=== PATIENT | female | born 1935 | race Caucasian/White ===

== ENCOUNTER → 2016-12-03 | Outpatient (CLI) | payer OTHER ==
[~2016-12-03] MED LIST: ADVAIR HFA 230M12 GM INH; ALENDRONATE SODI5 MG PO; ALPRAZOLAM 0.50.5 M1 PO; ARICEPT 5 MG TAB5 MG PO; ARTIFICIAL TEAR15 M6 OP; ASPIR 8181 MG PO; CALCIUM 600 +1 EAC1 PO; CARAFATE 1 GM TA1 G1 PO; COLACE100 MG PO; HYDROCODONE-AP1 EAC6 PO; HYDROCODONE-APA1 TA1 PO; MELATONIN3 MG PO; NAMENDA 5 MG TAB5 M1 PO; NICOTINE LOZENGE2 MG PO; NUEDEXTA 20-101 EACH PO; OLEPTRO ER150 M1 PO; PROBIOTIC1 EAC1 PO; PROTONIX 20 MG20 M1 PO; SERTRALINE HCL100 MG PO; SERTRALINE HCL50 MG PO; SPIRIVA INH; TRAMADOL 50 MG50 MG PO; TRAZODONE HCL100 MG PO; TYLENOL325 MG PO; VITAMIN B122500 MCG PO; VITAMIN D3400 UNI2 PO; VOLTAREN GEL 1100 G2 TOP; ZANAFLEX4 MG PO; ZANTAC 150MG T150 MG PO
== END ==
LOC: CAT 08:31 → RAD 14:51 → CAT 17:37
DX: R16.0 Hepatomegaly, not elsewhere classified (principal); R19.00 Intra-abdominal and pelvic swelling, mass and lump, unspecified site; N83.209 Unspecified ovarian cyst, unspecified side; K76.9 Liver disease, unspecified; J44.9 Chronic obstructive pulmonary disease, unspecified; R91.8 Other nonspecific abnormal finding of lung field

== ENCOUNTER → 2017-03-14 | Outpatient (CLI) | payer OTHER ==
[~2017-03-14] VITALS: Ht 162.6 cm; Wt 50.8 kg
[~2017-03-14] MED LIST changes: +CONSTULOSE10 GM/15 M PO; +LIPITOR10 MG PO; +PROSCAR 5MG TABL5 MG PO; +XANAX 0.25 MG0.25 MG PO; +ZOLOFT50 MG PO
--- NOTE | ~2017-03-14 | HPC ---
[facility] [place] [address] PAIN MANAGEMENT CONSULTATION Name: CHAVO FRAZIER Room #: REG Jayna Larry#: [id number] Admission: 03/14/17 Attend Phys: Beau Redding DO Discharge: Date of : 36 Report #: [id number] THIS REPORT FOR: //name// CC: Fransisca Redding The patient is an 81-year-old female, prior seen in the pain clinic 01/13/2017, diagnosed with symptomatic lumbar radiculopathy, DJD affecting hands, knee and component of cervical spondylosis. The patient was given a lumbar epidural injection on 12/24/2016. She had returned, last visit, she had at least 65% following the first injection. I had renewed some hydrocodone. We trialed Voltaren gel topically for her neck. We talked about moving forward with either cervical facets or repeat epidural injection depending on clinical exam at that time. She returns to pain clinic today. I am pleased to note that she is doing remarkably well. No problems with functional status, able to participate in all activities of daily living. She thinks the Voltaren gel is helpful. She rates her pain at 2/10 at worse. She does, however, have ongoing knee pain that seems to be the most problematic. She has modestly ballottable edema here with some osseous hypertrophy. She had steroid injections by an orthopedic surgeon in the distant past. PHYSICAL EXAMINATION: Shows vital signs stable. She is afebrile. Knee appears to have intact ligaments including anterior, posterior cruciate as well as medial and lateral collateral ligaments are intact. There is a modest ballottable edema. ASSESSMENT: Degenerative joint disease, right knee in a patient with history of lumbar radiculopathy, cervical spondylosis, doing well on current medications. RECOMMENDATION: We will seek authorization to move forward with steroid injection in that right knee. Today, I did take the [place] of ordering x-rays of the right knee, I reviewed those studies noting mild degenerative changes in the medial apartment of the right knee. By: [id number] [id number] Beau Redding, /nt
[2017-03-14 10:16] VITALS: BP 131/89
== END ==
LOC: PAIN 07:11
DX: M54.16 Radiculopathy, lumbar region (principal); M17.0 Bilateral primary osteoarthritis of knee; M19.042 Primary osteoarthritis, left hand; M19.041 Primary osteoarthritis, right hand; F32.9 Major depressive disorder, single episode, unspecified

== ENCOUNTER → 2017-03-21 | Outpatient (CLI) | payer OTHER ==
[~2017-03-21] VITALS: Ht 162.6 cm; Wt 51.0 kg
--- NOTE | ~2017-03-21 | HPC ---
[facility] Ramya [place] [address] PAIN MANAGEMENT CONSULTATION Name: CHAVO FRAZIER Room #: REG CL Larry#: [id number] Admission: 03/21/17 Attend Phys: Beau Redding DO Discharge: Date of : 36 Report #: [id number] THIS REPORT FOR: //name// CC: Fransisca Redding DATE OF SERVICE: 03/21/2017 HISTORY OF PRESENT ILLNESS: The patient is a pleasant 81-year-old female, prior seen in the pain clinic, 03/14/2017, we diagnosed symptomatic DJD, right knee. I have ordered x-rays of the right knee, accomplished that day, they note mild degenerative changes involving the medial compartment of the right knee, patellofemoral joint. She presents to pain clinic today for a right knee joint injection under fluoroscopy. PROCEDURE NOTE: Right knee injection under fluoroscopy. PROCEDURE: After written informed consent was obtained, the patient was taken to fluoroscopy suite, placed in prone position. After sterile prep and drape, skin wheal was raised. A 21-gauge needle was placed from a superior lateral aspect of the inferior medial trajectory. I had difficult time obtaining good placement. We elected to abort and retry at an inferior lateral aspect approach in a superior medial trajectory. The catheter was easily advanced under the patella, negative aspiration was accomplished. A 20 mg triamcinolone plus 1 mL of 0.5% preservative-free bupivacaine was injected. Needle was removed. The area was cleansed, Band-Aid applied. The patient was told to watch the area for swelling, infection or increased pain. PLAN: Follow up in 4 weeks for reevaluation and repeat injection if indicated. We might try a medial approach at next visit due to the fact that most of the pathology is on the medial aspect of the knee. Discharged in good stable condition. Fluoroscopy time was 10 seconds. <ELECTRONICALLY SIGNED> By: Beau Redding DO 03/23/17 0758 [id number] [id number] Beau Redding DO /nt
[2017-03-21 13:31] VITALS: BP 120/60
== END ==
LOC: PAIN 06:52
DX: M17.11 Unilateral primary osteoarthritis, right knee (principal); K21.9 Gastro-esophageal reflux disease without esophagitis

== ENCOUNTER → 2017-04-18 | Outpatient (CLI) | payer OTHER ==
[~2017-04-18] VITALS: Ht 162.6 cm; Wt 50.8 kg
[~2017-04-18] MED LIST changes: +ACETAMINOPHEN325 M1 PO; +VITAMIN D35000 UNI1 PO
--- NOTE | ~2017-04-18 | HPC ---
[facility] [place] [address] PAIN MANAGEMENT CONSULTATION Name: CHAVO FRAZIER Room #: REG IJEOMA Larry#: [id number] Admission: 04/18/17 Attend Phys: Beau Redding DO Discharge: Date of : 36 Report #: [id number] THIS REPORT FOR: //name// CC: Fransisca Redding The patient is an 81-year-old female, prior seen in the pain clinic 03/21/2017, we did a steroid injection in her knees at that time. Returns to the pain clinic today noting that the knee joint injection afforded incremental relief of her knee pain. Her primary pain remains back, both legs, right greater than left. Rates her pain as 6/10, exacerbated with standing and walking, worse in the evening. PHYSICAL EXAMINATION: Shows an 81-year-old female, BMI is 19.2 kilograms per meter squared. Vital signs are stable as noted in the EMR. Rises from chair using armrest, modestly antalgic gait. Lower extremity strength is diminished symmetrically. Positive straight leg raise bilaterally. ASSESSMENT: Lumbar radiculopathy by clinical exam and history. The patient prior had an epidural injection back in December with incremental relief for radicular pain. After discussion, we would like to repeat the injection under fluoroscopy today. Continue physical activity. Follow up on an as needed basis. ASSESSMENT: Symptomatic lumbar radiculopathy. PROCEDURE: Lumbar epidural injection under fluoroscopy. PROCEDURE NOTE: After both written and informed consent to include risk of spinal cord damage, increased pain, weakness and dural puncture, the patient was taken to the fluoroscopy suite, placed in the prone position. After sterile prep and drape, a skin wheal with lidocaine was raised. A 22-gauge epidural Tuohy needle was inserted in the midline at L4-L5 with good loss to resistance. Negative aspiration for cerebrospinal fluid or blood was noted. Then 1 mL of Omnipaque under biplanar fluoroscopy showed good spread within the epidural space. This was followed with 80 mg of triamcinolone plus 1 mL of 1.5% preservative-free Xylocaine, 0.5 mL Xylocaine was then injected to flush the needle; it was removed. The patient was monitored for an appropriate period of time and discharged in good and stable condition. <ELECTRONICALLY SIGNED> By: Beau Redding DO 04/20/17 1252 1638 22 Beau Redding DO /nt
[2017-04-18 12:59] VITALS: BP 145/50
== END ==
LOC: PAIN 06:44
DX: M54.16 Radiculopathy, lumbar region (principal)

== ENCOUNTER → 2017-05-13 | Outpatient (CLI) | payer OTHER ==
[~2017-05-13] VITALS: Ht 162.6 cm; Wt 51.7 kg
[2017-05-13 10:12] VITALS: BP 119/59
== END ==
LOC: PAIN 06:54
DX: M54.16 Radiculopathy, lumbar region (principal)

== ENCOUNTER → 2017-06-24 | Outpatient (CLI) | payer OTHER ==
[~2017-06-24] VITALS: Ht 162.6 cm; Wt 53.7 kg
--- NOTE | ~2017-06-24 | HPC ---
[facility] [place] [address] [address] PAIN MANAGEMENT CONSULTATION Name: CHAVO FRAZIER Room #: REG Jayna Colvin.#: [id number] Admission: 06/24/17 Attend Phys: Cristiana Duarte MD Discharge: Date of : 36 Report #: [id number] THIS REPORT FOR: //name// CC: MARLEY physician/PCP Cristiana Duarte DATE OF SERVICE: 06/24/2017 CHIEF COMPLAINT: Upper and lower back pain as well as right knee pain. FOLLOWUP HISTORY: The patient is an 81-year-old female who has been seen in the pain clinic because of lumbar radiculopathy. She has undergone epidural steroid injections and gleaned benefits from these. She returns today indicating that her pain has been problematic. She rates it as 5-6. She has been lying in bed for longer periods of time. Her daughter states that she has been in bed for a number of days. She has pain, which she describes in the lower portion of her back as well as pain in her right knee. She has been using a walker to help ambulate. PHYSICAL EXAMINATION: Blood pressure is 117/70, pulse 74, respiratory rate 16, room air saturation is 93, height 5 feet 4 inches, 118 pounds, and BMI is 20. The patient has pain and discomfort, which she describes radiating down into the lumbar area. She walks in a slow antalgic gait with a walker. IMPRESSION: 1. Lumbar radiculopathy. 2. Knee pain. RECOMMENDATIONS: We discussed treatment options with the patient. She has been given tramadol. She has not taken it secondary to the possibility of constipation. She has had some problem with constipation for a significant part of her life. She had used aqua therapy. She found that it was helpful with her pain. She feels that it might be another option which would be helpful. ASSESSMENT: 1. Symptomatic Lumbar radiculopathy. 2. Knee pain involving the right knee. RECOMMENDATIONS: The patient will try tramadol. If she notes problems with constipation. She will try another medication, whether bulk or laxative type of medication. She will also be seen by Physical Therapy. She will be evaluated and provided with activities which would be helpful. She will call us if she has any problems with the tramadol or Physical Therapy. She will return in the future when it will be possible for her to again undergo treatment with an epidural steroid. She and her daughter indicated they understood the treatment regimen. [address] [address] PAIN MANAGEMENT CONSULTATION Name: CHAVO FRAZIER Room #: REG CLI BinDiannLisa#: [id number] Admission: 06/24/17 Attend Phys: Cristiana Duarte MD Discharge: Date of : 36 Report #: [id number] We would like to thank you for letting us participate in her care. We hope she continues to improve. By: 1426 0016 Cristiana Duarte MD /
[2017-06-24 11:34] VITALS: BP 117/70
== END | disposition home or self-care (01) ==
LOC: PAIN 06:56
DX: M54.16 Radiculopathy, lumbar region (principal); M25.561 Pain in right knee

== ENCOUNTER → 2017-07-08 | Outpatient (CLI) | payer OTHER ==
[~2017-07-08] VITALS: Ht 162.6 cm; Wt 55.1 kg
--- NOTE | ~2017-07-08 | HPC ---
[facility] [place] [address] [address] [place] [address] PAIN MANAGEMENT CONSULTATION Name: CHAVO FRAZIER Room #: REG IJEOMA Colvin.#: [id number] Admission: 07/08/17 Attend Phys: Cristiana Duarte MD Discharge: Date of : 36 Report #: [id number] THIS REPORT FOR: //name// CC: Diana Olivera MD DATE OF SERVICE: 07/08/2017 CHIEF COMPLAINT: Pain in the back of the leg that goes down to the right buttocks, also have some neck pain. FOLLOWUP HISTORY: The patient is an 81-year-old female who has been seen in the Pain Clinic in the past because of lumbar radiculopathy. She has undergone epidural steroid injections and gleaned benefits from these. She returns today indicating that her pain is an 8-9. She is experiencing pain radiating down the lower portion of her back into her right buttock as well as has some neck and knee discomfort. Pain is down in the posterior portion of her leg. She has some numbness, weakness and discomfort in this area. She feels that another epidural steroid injection would prove beneficial. She has had no complication from the previous injections. She feels that her medications are helpful. She continues to use a walker to help ambulate. PHYSICAL EXAMINATION: Blood pressure is 123/57, pulse 79, respiratory rate 14, room air saturation 98%. Height 5 feet 4 inches, weight 121 pounds, BMI is 20. The patient has not fallen since we saw her last. She continues to have pain and discomfort, which radiates down into the posterior portion of her back in the L5-S1 distribution. She walks with her walker with a slow and antalgic gait. IMPRESSION: 1. Lumbar radiculopathy, L5-S1 distribution and discomfort at this juncture. 2. Knee pain. RECOMMENDATION: We discussed treatment options with the patient. Risks and benefits of an epidural steroid injection were again reviewed. Possible complications were reiterated. Possible complications which could include but are not limited to infection, increased muscle soreness, headache, bleeding, nerve damage were explained. The patient would like to proceed. ASSESSMENT: Lumbar radiculopathy, L5-S1 distribution. We will proceed with a steroid injection. PROCEDURE NOTE: The patient was placed in the prone position. Fluoroscopy was used to identify the L5-S1 interspace. This area had been sterilely prepped with Betadine and infiltrated with 0.25% bupivacaine. Total of [address] [address] PAIN MANAGEMENT CONSULTATION Name: CHAVO FRAZIER [facility] [id number] Admission: 07/08/17 Attend Phys: Cristiana Duarte MD Discharge: Date of : 36 Report #: [id number] Depo-Medrol, 40 mg triamcinolone and 2 mL of 0.25% bupivacaine was injected. The patient's pain decreased from 9-3 at the time of her departure. She continues to have pain in her right knee and is considering an injection in the future. By: 0821 0048 Cristiana Duarte MD /
[2017-07-08 10:52] VITALS: BP 123/57
== END | disposition home or self-care (01) ==
LOC: PAIN 08:59
DX: M54.16 Radiculopathy, lumbar region (principal)

== ENCOUNTER → 2017-08-12 | Outpatient (CLI) | payer OTHER ==
[~2017-08-12] VITALS: Ht 162.6 cm; Wt 54.4 kg
[~2017-08-12] MED LIST changes: +ADVAIR 250-501 EACH INH; +B12INJ PO; +CETIRIZINE HCL5 MG PO; +CYMBALTA30 MG PO; +LIDODERM1 EACH TRANSDERM; +NEURONTIN 300300 M1 PO; +OMEPRAZOLE 20 M20 M1 PO; +TRAZODONE HCL50 MG PO; +UNICOMPLEX M TA1 TA1 PO; +VITAMIN D1000 UNI1 PO
--- NOTE | ~2017-08-12 | HPC ---
[facility] [place] [address] PAIN MANAGEMENT CONSULTATION Name: CHAVO FRAZIER Room #: REG IJEOMA Juarez#: [id number] Admission: 08/12/17 Attend Phys: Cristiana Duarte MD Discharge: Date of : 36 Report #: [id number] THIS REPORT FOR: //name// CC: Diana Olivera MD DATE OF SERVICE: 08/12/2017 FOLLOWUP COMPLAINT: Pain in the right knee. HISTORY OF PRESENT ILLNESS: The patient is an 81-year-old female who has been seen in the pain clinic in the past because of lumbar radicular pain. She also has some problems with knee discomfort. She has undergone knee injections in the past and gleaned them beneficial. At this juncture, she is about to go on vacation. She would like to undergo an injection at this juncture. She rates her pain as 8-9/10. PHYSICAL EXAMINATION: Blood pressure 119/67, pulse 82, respiratory rate 16, room air saturation 97%. Height 5 feet 4 inches, weight 162 pounds, BMI is 20. The patient has not fallen since we saw her last. She does complain of pain and discomfort involving the right knee. There is a complaint of discomfort with range of motion in the right knee. There is no significant amount of fluid noted. IMPRESSION: 1. Right knee pain. The patient has returned for knee injection. 2. Lumbar radiculopathy, reasonably improve. RECOMMENDATIONS: We will proceed today with a right knee injection. Risks and benefits of the injection were discussed with the patient and they include infection, trauma worsening of knee pain. The patient elects to proceed. PROCEDURE NOTE: The patient was placed in the spine position. Her knee was sterilely prepped with a chlorhexidine solution. This was allowed to dry. A second chlorhexidine solution was provided and allowed to dry. The patient's knee was then wiped with Betadine and allowed to dry. A #18-gauge needle was then injected using the suprapatellar lateral approach. After aspiration no return was noted. A total of 5 mL of 0.25% bupivacaine and 40 mg triamcinolone was injected. The patient tolerated the procedure well. There were no complications. We would like to thank you for letting us participate in her care. Her pain was [address] [address] PAIN MANAGEMENT CONSULTATION Name: CHAVO FRAZIER Room #: REG IJEOMA ColvinLisa#: [id number] Admission: 08/12/17 Attend Phys: Cristiana Duarte MD Discharge: Date of : 36 Report #: [id number] rated as 0 at the time of discharge. She will follow up in the future as needed. <ELECTRONICALLY SIGNED> By: Cristiana Duarte MD 08/26/17 0844 0833 1840 Cristiana Duarte MD /ZENIA
[2017-08-12 08:49] VITALS: BP 119/67
== END | disposition home or self-care (01) ==
LOC: PAIN 08-05 12:35
DX: M25.561 Pain in right knee (principal); M54.16 Radiculopathy, lumbar region; K21.9 Gastro-esophageal reflux disease without esophagitis; N18.9 Chronic kidney disease, unspecified; Z79.82 Long term (current) use of aspirin; Z79.899 Other long term (current) drug therapy

== ENCOUNTER → 2017-11-16 | Outpatient (CLI) | payer OTHER ==
[~2017-11-16] MED LIST changes: +AMOXICILLIN500 M1 PO; +ANTIVERT25 MG PO; +BIOFREEZE118 ML TOP; +CYMBALTA60 MG PO; +FLONASE 0.05%50 MCG NASAL; +HYDROCORTISONE30 G9 TOP; +IBUPROFEN 600600 M1 PO; +KEFLEX500 M1 PO; +LACTULOSE10 GM/152 PO; +LOPERAMIDE 2 MG2 M1 PO; +MEDROLDOSEPACK PO; +SENNA8.6 MG PO; +SYMPROIC0.2 MG PO; +TIZANIDINE HCL4 MG PO; +TYLENOL EXTRA500 MG PO; +ZANAFLEX2 MG PO
[2017-11-16 16:13] LABS: HEMATOCRIT 40.3 % (37.0-47.0); HEMOGLOBIN 13.4 gm/dL (12.0-15.0); MCH 32.5 pg (26.0-34.0); MCHC 33.4 g/dL (28.0-37.0); MCV 97.4 fL (80.0-100.0); RBC 4.14 mil/uL (4.20-5.00); RDW 12.4 % (10.5-14.5)
[2017-11-16 16:15] LABS: URINE BILIRUBIN NEGATIVE (Negative); URINE BLOOD NEGATIVE (Negative); URINE CLARITY CLEAR; URINE COLOR YELLOW; URINE GLUCOSE-RANDOM* NEGATIVE (Negative); URINE KETONES TRACE (Negative); URINE LEUKOCYTES-REFLEX NEGATIVE (Negative); URINE NITRITE-REFLEX NEGATIVE (Negative); URINE PROTEIN (DIPSTICK) NEGATIVE (Negative); URINE SPECIFIC GRAVITY 1.015 (1.005-1.035)
[2017-11-16 16:57] LABS: ALBUMIN 3.6 g/dL (3.4-5.0); CALCIUM 9.2 mg/dL (8.5-10.1); CREATININE 1.1 mg/dL (0.6-1.0); MAGNESIUM 1.9 mg/dL (1.8-2.4); POTASSIUM 4.1 mmol/L (3.5-5.1); TOTAL BILIRUBIN 0.4 mg/dL (<0.1-1.0); TOTAL PROTEIN 6.6 g/dL (6.4-8.2)
[2017-11-16 17:14] LABS: TSH 1.448 uIU/mL (0.358-3.740)
== END ==
LOC: SEN 12:53
PROVIDERS: Registered Nurse
DX: F41.9 Anxiety disorder, unspecified (principal); K00-K95 Diseases of the digestive system; J98.4 Other disorders of lung; Z98.890 Other specified postprocedural states; Z87.891 Personal history of nicotine dependence

== ENCOUNTER → 2017-11-23 | Outpatient (CLI) | payer OTHER ==
[~2017-11-23] VITALS: Ht 162.6 cm; Wt 56.9 kg
--- NOTE | ~2017-11-23 | HPC ---
[facility] [place] [address] [address] [place] [address] PAIN MANAGEMENT CONSULTATION Name: CHAVO FRAZIER Room #: REG Jayna Colvin.#: [id number] Admission: 11/23/17 Attend Phys: Cristiana Duarte MD Discharge: Date of : 36 Report #: [id number] THIS REPORT FOR: //name// CC: Diana Olivera MD DATE OF SERVICE: 11/23/2017 FOLLOWUP COMPLAINT: Pain in the left back and side. HISTORY OF PRESENT ILLNESS: The patient is an 82-year-old female who has been seen and followed in the pain clinic because of knee pain. She has undergone injections in her knee. The last injection was quite helpful. She is doing reasonably well from that vantage point. At this juncture, she is noticing pain and discomfort in her left lower back area. States that kind of radiates around the left side. She rates it as a 10/10. She denies any trauma. Denies any real idea as to why she is having the pain. She noticed onset of this over the last few weeks and has continued to get worse. She did have a history of diverticulitis. She does not feel that this is the same type of pain. She has not noticed any rash, radiating around her left side. Does not have a history per se of kidney stones. She has been using tramadol. Feels that medication is helpful, but she lives in a nursing facility and would like to be evaluated for this pain, which is problematic. She is unable to engage in activities of daily living because of this. ALLERGIES: No known drug allergies. CURRENT MEDICATIONS: Zyrtec 5 mg, vitamin B12, trazodone 50 mg at bedtime p.r.n. insomnia, tramadol 50 mg one q.4-6h p.r.n. pain, Spiriva inhaler as directed, omeprazole 20 mg, multiple vitamins, Lidoderm patch attached to the left back area, Gabapentin 300 mg at bedtime, Tylenol regular strength, vitamin D3, calcium 600 mg b.i.d., probiotic, lactobacillus, aspirin 81 mg, docusate 100 mg, lactulose 10 grams p.r.n., Lipitor 10 mg, Aricept 5 mg, a total of 10 mg daily, Advair 2 puffs b.i.d., alprazolam 0.25 mg, vitamin B12, trazodone 100 mg, and Alendronate 70 mg weekly. PHYSICAL EXAMINATION: VITAL SIGNS: Blood pressure 133/55, pulse 70, respiratory rate 16, room air saturation is 98%. Height 5 feet 4 inches, weight 125 pounds, BMI is 21. Temperature 97.3 p.o. The patient has not fallen since we saw her last. GENERAL: Well-developed female, walking with somewhat antalgic gait with her hand on the left low back area, appears appropriate today. Oriented and alert. Affect is appropriate. HEENT: No trauma. [address] [address] PAIN MANAGEMENT CONSULTATION Name: CHAVO FRAZIER Room #: REG IJEOMA Juarez#: [id number] Admission: 11/23/17 Attend Phys: Cristiana Duarte MD Discharge: Date of : 36 Report #: [id number] LUNGS: Clear to auscultation. HEART: Regular rate. ABDOMEN: Nontender. The patient does have some discomfort with palpation in the area of the left ascending colon. No masses are noted. No evidence of rash is noted on her back. MUSCULOSKELETAL: Palpation in the area of the latissimus dorsi and gluteus anjana insertion on the posterior superior iliac spine area causes a reproduction of the patient's pain pushing in this area reproduces her discomfort and cause the patient to vocalize and withdrawal. Examination of the left greater trochanteric area is not problematic. Pressure on the iliac crest with the patient in the left and right lateral decubitus position did not cause any pain or discomfort in the sacroiliac joint areas. Skin appeared normal in this area. A Lidoderm patch was removed from the area. IMPRESSION: 1. Pain in the right and in the left posterior superior iliac spine area near the latissimus dorsi, and gluteus anjana. 2. History of right knee pain improved after the last injection. 3. History of lumbar radiculopathy, stable at this juncture. 4. Hypercholesterolemia. 5. Chronic obstructive pulmonary disease, unspecified dementia without behavioral disturbance; anxiety disorder, major depressive disorder, age-related osteoporosis. RECOMMENDATIONS: We discussed treatment options with the patient and her daughter. It appears that she has a trigger point area on the left low back area. This appeared to be the origin of her pain and discomfort. Palpation in this area does reproduce her discomfort and cause the patient to wince and withdrawal. We have discussed the treatment options, which include conservative treatment or use of a injection of local anesthetic and steroid to help with this pain. Possible complication of the procedure, which could include infection, increased muscle soreness, worsening of pain were explained. She and her daughter agreed to proceed. PROCEDURE NOTE: The patient was placed in the sitting position. Her back was sterilely prepped with a chlorhexidine solution. This was allowed to dry. After palpation and identification of a trigger point in the area of the latissimus dorsi and gluteus anjana near the posterior superior iliac spine, a 25-gauge needle was then advanced into this area. The patient states this reproduced her pain. A total of 10 mL of 0.5% bupivacaine and 80 mg triamcinolone was injected. The patient tolerated the procedure well. She was then assisted to the recovery room where she remained for an appropriate amount of time. A score of 0 was noted at the time of her departure. She states ____ the area of her pain and it had resolved after the injection with the local and [address] [address] PAIN MANAGEMENT CONSULTATION Name: TEMITOPE FRAZIEREDILBERTO GUZMÁN Room #: REG [facility].#: [id number] Admission: 11/23/17 Attend Phys: Cristiana Duarte MD Discharge: Date of : 36 Report #: [id number] steroid. She will follow up in the future as needed. We would like to thank you for letting us participate in her care. We hope she continues to improve. <ELECTRONICALLY SIGNED> By: Cristiana Duarte MD 01/18/18 1415 0824 1532 Cristiana Duarte MD /nt
[2017-11-23 13:01] VITALS: BP 133/55
== END | disposition home or self-care (01) ==
LOC: PAIN 07:13
DX: M79.1 Myalgia (principal); M25.561 Pain in right knee; M54.16 Radiculopathy, lumbar region; N18.9 Chronic kidney disease, unspecified; K21.9 Gastro-esophageal reflux disease without esophagitis; E78.00 Pure hypercholesterolemia, unspecified; M81.0 Age-related osteoporosis without current pathological fracture; J44.9 Chronic obstructive pulmonary disease, unspecified; F41.8 Other specified anxiety disorders; F32.89 Other specified depressive episodes; F03.90 Unspecified dementia, unspecified severity, without behavioral disturbance, psychotic disturbance, mood disturbance, and anxiety; Z79.899 Other long term (current) drug therapy; Z79.82 Long term (current) use of aspirin; Z98.890 Other specified postprocedural states

== ENCOUNTER → 2017-12-15 | Outpatient (CLI) | payer OTHER | LOC: SEN 09:22 | DX: F41.9 Anxiety disorder, unspecified (principal); K59.00 Constipation, unspecified; E83.42 Hypomagnesemia; F32.9 Major depressive disorder, single episode, unspecified ==

== ENCOUNTER 2018-01-01 16:47 | Emergency (ER) | payer OTHER ==
[~2018-01-01] VITALS: Ht 162.6 cm; Wt 51.3 kg
[~2018-01-01 16:47] MED LIST changes: -AMOXICILLIN500 M1 PO; -ANTIVERT25 MG PO; -BIOFREEZE118 ML TOP; -CYMBALTA60 MG PO; -FLONASE 0.05%50 MCG NASAL; -HYDROCORTISONE30 G9 TOP; -IBUPROFEN 600600 M1 PO; -KEFLEX500 M1 PO; -LACTULOSE10 GM/152 PO; -LOPERAMIDE 2 MG2 M1 PO; -MEDROLDOSEPACK PO; -SENNA8.6 MG PO; -SYMPROIC0.2 MG PO; -TIZANIDINE HCL4 MG PO; -TYLENOL EXTRA500 MG PO; -ZANAFLEX2 MG PO
[2018-01-01 17:39] LABS: AMP/METHAMP Negative (Negative); BARBITURATES Negative (Negative); BENZODIAZEPINES POSITIVE (Negative); COCAINE Negative (Negative); METHADONE Negative (Negative); OPIATES Negative (Negative); PCP Negative (Negative)
[2018-01-01 17:59] LABS: HEMATOCRIT 37.6 % (37.0-47.0); HEMOGLOBIN 12.9 gm/dL (12.0-15.0); MCH 33.4 pg (26.0-34.0); MCHC 34.3 g/dL (28.0-37.0); MCV 97.6 fL (80.0-100.0); PLATELET COUNT 350 thou/uL (150-400); RBC 3.86 mil/uL (4.20-5.00); WBC 4.7 thou/uL (4.0-11.0)
[2018-01-01 18:17] LABS: ANION GAP 7 mmol/L (7-16); BUN 13 mg/dL (7-18); CHLORIDE 102 mmol/L (98-107); CO2 28 mmol/L (21-32); GLUCOSE 85 mg/dL (74-106); POTASSIUM 3.8 mmol/L (3.5-5.1); SODIUM 137 mmol/L (136-145)
[2018-01-01 18:19] LABS: ABSOLUTE NEUTROPHILS 2.4 thou/uL (1.4-8.2)
[2018-01-01 18:21] LABS: ALBUMIN 3.2 g/dL (3.4-5.0); DIRECT BILIRUBIN < 0.1 mg/dL (<0.1-0.3); SALICYLATE < 2.8 mg/dL (2.8-20.0); SGOT 32 U/L (15-37); SGPT 34 U/L (30-65); TOTAL BILIRUBIN 0.2 mg/dL (<0.1-1.0); TOTAL PROTEIN 6.4 g/dL (6.4-8.2)
[2018-01-01] MEDS ORDERED: AMOXICILLIN500 M1 PO (19:42)
[2018-01-01] MEDS ORDERED: IBUPROFEN 600600 M1 PO (19:42)
[2018-01-01] MEDS ORDERED: ANTIVERT25 MG PO (19:42)
[2018-01-01] MEDS ORDERED: XANAX 0.25 MG0.25 MG PO (20:23)
[2018-01-01 21:24] VITALS: BP 135/72
[2018-02-13] MEDS ORDERED: SENNA8.6 MG PO (09:46)
[2018-02-13] MEDS ORDERED: CYMBALTA60 MG PO (09:46)
[2018-02-13] MEDS ORDERED: ARICEPT 5 MG TAB5 MG PO (09:46)
[2018-02-13] MEDS ORDERED: TRAZODONE HCL50 MG PO (09:47)
[2018-02-22] MEDS ORDERED: ZANAFLEX2 MG PO (10:16)
[2018-02-22] MEDS ORDERED: TRAMADOL 50 MG50 MG PO (11:07)
[2018-03-29] MEDS ORDERED: SYMPROIC0.2 MG PO (10:48)
[2018-05-12] MEDS ORDERED: TRAZODONE HCL100 MG PO (15:06)
[2018-06-27] MEDS ORDERED: OMEPRAZOLE 20 M20 M1 PO (16:16)
[2018-06-27] MEDS ORDERED: ADVAIR 250-501 EACH INH (16:17)
[2018-06-28] MEDS ORDERED: TYLENOL EXTRA500 MG PO (12:34)
[2018-06-28] MEDS ORDERED: BIOFREEZE118 ML TOP (12:37)
[2018-06-28] MEDS ORDERED: TRAMADOL 50 MG50 MG PO (12:41)
[2018-06-28] MEDS ORDERED: TRAZODONE HCL50 MG PO (12:42)
[2018-06-28] MEDS ORDERED: SPIRIVA INH (12:44)
[2018-06-28] MEDS ORDERED: FLONASE 0.05%50 MCG NASAL (12:45)
[2018-06-28] MEDS ORDERED: LACTULOSE10 GM/152 PO (12:46)
[2018-06-28] MEDS ORDERED: HYDROCORTISONE30 G9 TOP (12:47)
[2018-09-08] MEDS ORDERED: LOPERAMIDE 2 MG2 M1 PO (09:12)
[2018-09-08] MEDS ORDERED: MEDROLDOSEPACK PO (09:26)
[2018-09-08] MEDS ORDERED: TRAMADOL 50 MG50 MG PO (09:28)
== END 2018-01-01 21:20 | disposition home or self-care (01) ==
LOC: ER 16:47
PROVIDERS: Nurse Practitioner
DX: F32.9 Major depressive disorder, single episode, unspecified (principal); F41.9 Anxiety disorder, unspecified; F17.210 Nicotine dependence, cigarettes, uncomplicated

== ENCOUNTER 2018-02-15 10:20 | Emergency (ER) | payer OTHER ==
[~2018-02-15] VITALS: Ht 162.6 cm; Wt 49.9 kg
--- NOTE | ~2018-02-15 | EKG ---
[address] [address] ELECTROCARDIOGRAM REPORT Name: CHAVO FRAZIER Room #: DEP Larry#: [id number] Admission: 02/15/18 Attend Phys: Discharge: 02/15/18 Date of : 36 Report #: [id number] THIS REPORT FOR: //name// [facility] ED Test Date: 2018-02-15 Test Time: 10:43:52 Pat Name: CHAVO FRAZIER Department: Room: Gender: F Emergency Medicine Medical Director: GERTRUDIS : 1935 Requested By: Ruperto Nascimento Order Number: [id number] MD: Zachery Corea Measurements Intervals [place] Rate: 67 P: 59 MO: 163 QRS: 68 QRSD: 87 T: 59 QT: 416 QTc: 439 Interpretive Statements Sinus rhythm Compared to ECG 02/15/2017 18:05:47 Atrial premature complex(es) no longer present Electronically Signed On 02-15-2018 17:18:17 CDT by Zachery Corea [email or web address] <ELECTRONICALLY SIGNED> By: Zachery Corea MD 02/15/18 1718 1043 104 Zachery Corea MD /JONI
[~2018-02-15 10:20] MED LIST changes: +AMOXICILLIN500 M1 PO; +ANTIVERT25 MG PO; +CYMBALTA60 MG PO; +IBUPROFEN 600600 M1 PO; +SENNA8.6 MG PO
[2018-02-15 10:57] LABS: ABSOLUTE NEUTROPHILS 3.8 thou/uL (1.4-8.2); BASOPHILS 0.8 % (0.0-2.0); EOSINOPHILS 1.9 % (0.0-3.0); HEMATOCRIT 36.4 % (37.0-47.0); HEMOGLOBIN 12.4 gm/dL (12.0-15.0); LYMPHOCYTES 28.3 % (24.0-44.0); MCH 32.9 pg (26.0-34.0); MCHC 34.1 g/dL (28.0-37.0); MCV 96.4 fL (80.0-100.0); PLATELET COUNT 273 thou/uL (150-400); RBC 3.77 mil/uL (4.20-5.00); RDW 12.1 % (10.5-14.5); WBC 6.2 thou/uL (4.0-11.0)
[2018-02-15 11:06] LABS: ANION GAP 5 mmol/L (7-16); BUN 18 mg/dL (7-18); CALCIUM 9.5 mg/dL (8.5-10.1); CHLORIDE 102 mmol/L (98-107); CO2 29 mmol/L (21-32); GLUCOSE 99 mg/dL (74-106); POTASSIUM 3.8 mmol/L (3.5-5.1); SODIUM 136 mmol/L (136-145)
[2018-02-15 11:14] LABS: URINE BILIRUBIN NEGATIVE (Negative); URINE BLOOD NEGATIVE (Negative); URINE CLARITY CLEAR; URINE COLOR YELLOW; URINE GLUCOSE-RANDOM* NEGATIVE (Negative); URINE KETONES NEGATIVE (Negative); URINE LEUKOCYTES NEGATIVE (Negative); URINE NITRITE NEGATIVE (Negative); URINE PROTEIN (DIPSTICK) NEGATIVE (Negative); URINE UROBILINOGEN 0.2 E.U./dl (0.2-1.0)
[2018-02-15 11:15] LABS: TROPONIN-I < 0.04 ng/mL (<0.06)
[2018-02-15] MEDS ORDERED: TIZANIDINE HCL4 MG PO (11:29)
== END 2018-02-15 11:47 | disposition home or self-care (01) ==
LOC: ER 10:20
PROVIDERS: Nurse Practitioner
DX: M62.830 Muscle spasm of back (principal); M54.9 Dorsalgia, unspecified; G89.29 Other chronic pain; M79.604 Pain in right leg; M79.605 Pain in left leg; Z87.891 Personal history of nicotine dependence

== ENCOUNTER → 2018-02-22 | Outpatient (CLI) | payer OTHER ==
[~2018-02-22] VITALS: Ht 162.6 cm; Wt 52.4 kg
[~2018-02-22] MED LIST changes: +TIZANIDINE HCL4 MG PO; +ZANAFLEX2 MG PO
--- NOTE | ~2018-02-22 | HPC ---
[facility] [place] [address] PAIN MANAGEMENT CONSULTATION Name: CHAVO FRAZIER Room #: REG IJOEMA PatelLisaDiann.#: [id number] Admission: 02/22/18 Attend Phys: Cristiana Duarte MD Discharge: Date of : 37 Report #: [id number] THIS REPORT FOR: //name// CC: Diana Olivera MD DATE OF SERVICE: 02/22/2018 FOLLOWUP COMPLAINT: Worsening of back pain for the last few weeks. FOLLOWUP HISTORY: The patient is an 82-year-old female who has been seen in the Pain Clinic because of chronic low back pain. She has noticed pain and discomfort, which has become more problematic over the last couple of weeks. It involves her low back area. She is having some spasms up into the mid thoracic area. Notes some pain and discomfort in the shoulder area and neck area. This has caused some worsening of headache, pain and discomfort. She had similar pain in the past. She was given an injection in the low back area. She noted a number of months of pain relief. At this juncture, she is rating her pain as an 8-9. She is finding it difficult to engage in activities of daily living. Sitting and walking can exacerbate her pain and discomfort. She would like to proceed with another injection. Denies any significant pain radiating down into her legs. No significant change in her bowel or bladder function. Finds that the tramadol medication continues to be helpful as well. Does stay in an Assisted Nursing Facility. ALLERGIES: No known drug allergies. CURRENT MEDICATIONS: Zyrtec 5 mg, vitamin B12, trazodone 50 mg at bedtime p.r.n. insomnia, tramadol 50 mg every 4-6 hours p.r.n. pain, Spiriva inhaler, omeprazole 20 mg, multivitamin, Lidoderm patch attached to the lower back area p.r.n., gabapentin 300 mg at bedtime, Tylenol regular strength, multivitamin, D3, calcium 600 mg b.i.d., probiotic which is lactobacillus, aspirin 81 mg, Docusate 100 mg, Lactulose 10 grams p.r.n., Lipitor 10 mg, Aricept 5 mg, total Aricept 10 mg daily, Advair 2 puffs b.i.d., alprazolam 0.25 mg, vitamin B12, trazodone 100 mg, Alendronate 70 mg weekly. PAIN CLINIC ASSESSMENT: 1. The patient does have some osteoarthritic changes with pain in the knees, which have been injected in the past. 2. Height 5 feet 4 inches, weight 115.6 pounds, BMI 19. 3. VITAL SIGNS: Blood pressure 112/61, pulse 73, respiratory rate 14 and room air saturation is 97%. 4. Pain intensity 8-9/10. 5. Fall risk. The patient has not fallen in the last 3 months[place] [address] PAIN MANAGEMENT CONSULTATION Name: CHAVO FRAZIER Room #: REG CL Vinicius.#: [id number] Admission: 02/22/18 Attend Phys: Cristiana Duarte MD Discharge: Date of : 36 Report #: [id number] with the assistance of walker. 6. Blood thinner. The patient is not on a blood thinner. 7. History of hypertension. The patient is not being treated for hypertension. 8. Opioid therapy greater than 6 weeks. The patient is not on a regular opioid medication regimen. 9. Risk assessment tool. 10. Functional assessment tool. 11. Recreational drug use, denies. 12. Former tobacco user. 13. Alcohol. Denies use of alcoholic beverages. PHYSICAL EXAMINATION: GENERAL: The patient is a well-developed white female. She appears her stated age. She is alert and oriented x 3. AFFECT: Complains of pain and looks somewhat despondent. Some complaint of severe pain of a global nature. HEENT: Normocephalic and atraumatic. Extraocular eye muscles intact. Sclerae nonicteric. Mucous membranes moist. Hearing within normal limits. NECK: Without adenopathy or JVD. LUNGS: Clear to auscultation without rhonchi. ABDOMEN: Nontender. MUSCULOSKELETAL: The patient is without significant scoliosis, kyphosis or lordosis. Upper extremity is judged to be 4/5 for the major muscle groups. Muscles are somewhat diminished. Cross Country/Track And Field Coach strength 4/5. Sensation within normal limits without sensory changes. Lower extremity, the patient has normal muscle strength to the lower extremities. A 5-/5 for the major muscle groups of the lower extremity. The patient is thin in body habitus. Palpation in the left and right posterior superior iliac spine areas reproduced pain and discomfort ____ which she has been experiencing in the past. IMPRESSION: 1. Right and left posterior superior iliac spine areas near the latissimus dorsi and gluteus anjana. 2. History of right knee pain, improved after last injection. 3. History of lumbar radiculopathy, stable at this juncture. 4. Hypercholesterolemia. 5. Chronic obstructive pulmonary disease. 6. Unspecified dementia without behavioral disturbance. 7. Anxiety disorder. 8. Major depressive disorder. 9. Age-related osteoporosis. RECOMMENDATIONS: We discussed the treatment options with the patient and her second daughter. The daughter that we had seen before has moved to [place]. She is having pain and discomfort in the lower portion of her back. She describes her pain as global. Note some pain in the lower portion of her back [facility] [address] [place] [address] PAIN MANAGEMENT CONSULTATION Name: CHAVO FRAZIER Room #: REG [facility].#: [id number] Admission: 02/22/18 Attend Phys: Cristiana Duarte MD Discharge: Date of : 36 Report #: [id number] with spasms up into the mid back and thoracic area. Has had some complaints of headaches with very tender areas in the left and right occipital area to palpation. RECOMMENDATIONS: We discussed treatment options with the patient. Pass injection with local anesthetic and steroid has been beneficial. She would like to proceed with the procedure. The patient elects to undergo the procedure. Risks and benefits of the procedure were reviewed with the patient. They include, but are not limited to infection, worsening of pain, bleeding, no improvement in pain. PROCEDURE: The patient was placed in the sitting position. Her back was sterilely prepped with a chlorhexidine solution and allowed to dry. The right posterior superior iliac spine area near the gluteus anjana and latissimus dorsi was palpated. The trigger point was identified. A 25-gauge needle was then advanced into the area of discomfort. The patient states this reproduced her pain. A total of 8 mL of 0.5% bupivacaine and 80 mg triamcinolone was injected. The patient tolerated that site well. The contralateral side was treated similarly. A 25-gauge needle was then advanced into the area and reproduced the pain and discomfort. A total of 8 mL of 0.5% bupivacaine was injected. A 80 mg Depo-Medrol was injected. The patient remained in the Pain Clinic for an appropriate amount of time. She will follow up in the future as needed. We would like to thank you for letting us participate in her care. We hope she continues to improve. <ELECTRONICALLY SIGNED> By: Cristiana Duarte MD 02/24/18 0815 1341 1740 Cristiana Duarte MD /nt
[2018-02-22 10:06] VITALS: BP 112/61
== END | disposition home or self-care (01) ==
LOC: PAIN 07:06
DX: M79.1 Myalgia (principal); G89.29 Other chronic pain; E78.00 Pure hypercholesterolemia, unspecified; K21.9 Gastro-esophageal reflux disease without esophagitis; N18.9 Chronic kidney disease, unspecified; J44.9 Chronic obstructive pulmonary disease, unspecified; F03.90 Unspecified dementia, unspecified severity, without behavioral disturbance, psychotic disturbance, mood disturbance, and anxiety; F41.9 Anxiety disorder, unspecified; M81.0 Age-related osteoporosis without current pathological fracture; Z87.19 Personal history of other diseases of the digestive system; Z79.899 Other long term (current) drug therapy; Z87.891 Personal history of nicotine dependence; Z98.890 Other specified postprocedural states

== ENCOUNTER → 2018-03-06 | Outpatient (CLI) | payer OTHER | LOC: RAD 01:48 | DX: Z12.31 Encounter for screening mammogram for malignant neoplasm of breast (principal) ==

== ENCOUNTER → 2018-03-27 | Outpatient (CLI) | payer OTHER ==
[~2018-03-27] VITALS: Ht 162.6 cm; Wt 51.0 kg
[2018-03-27 09:50] VITALS: BP 160/82
== END ==
LOC: SEN 08:58
DX: J44.9 Chronic obstructive pulmonary disease, unspecified (principal); F41.9 Anxiety disorder, unspecified; G89.29 Other chronic pain; K59.00 Constipation, unspecified

== ENCOUNTER → 2018-04-12 | Outpatient (CLI) | payer OTHER ==
[~2018-04-12] MED LIST changes: +SYMPROIC0.2 MG PO
[2018-04-12 10:06] VITALS: BP 165/71
== END ==
LOC: SEN 08:51
DX: R19.7 Diarrhea, unspecified (principal); J44.9 Chronic obstructive pulmonary disease, unspecified; R30.0 Dysuria; J30.9 Allergic rhinitis, unspecified

== ENCOUNTER 2018-04-21 15:51 | Inpatient (IN) | payer OTHER ==
[~2018-04-21] VITALS: Ht 162.6 cm; Wt 52.2 kg
--- NOTE | ~2018-04-21 | EKG ---
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: [facility] : 1935 Requested By: Rusty Jones Order Number: [id number] MD: Toby Martinez Measurements Intervals [place] Rate: 82 P: 70 TN: 153 QRS: 69 QRSD: 87 T: 55 QT: 405 QTc: 473 Interpretive Statements Sinus rhythm Ventricular bigeminy Baseline wander in lead(s) V4 Compared to ECG 02/15/2018 10:43:52 Ventricular premature complex(es) now present Electronically Signed On 04-21-2018 16:36:02 CDT by Toby Martinez [email or web address] <ELECTRONICALLY SIGNED> By: Toby Martinez MD, [facility] 04/21/18 1636 161 10 Toby Martinez MD, [facility] /EPI
[2018-04-21 15:51] VITALS: BP 109/78
[2018-04-21 16:17] LABS: ABSOLUTE NEUTROPHILS 3.8 thou/uL (1.4-8.2); BASOPHILS 0.6 % (0.0-2.0); EOSINOPHILS 1.5 % (0.0-3.0); HEMATOCRIT 35.2 % (37.0-47.0); HEMOGLOBIN 12.2 gm/dL (12.0-15.0); LYMPHOCYTES 22.5 % (24.0-44.0); MCH 33.9 pg (26.0-34.0); MCHC 34.8 g/dL (28.0-37.0); MCV 97.5 fL (80.0-100.0); MONOCYTES 10.9 % (1.0-8.0); PLATELET COUNT 259 thou/uL (150-400); POLYS 64.5 % (36.0-66.0); RBC 3.61 mil/uL (4.20-5.00); RDW 13.9 % (10.5-14.5); WBC 5.8 thou/uL (4.0-11.0)
[2018-04-21 16:25] LABS: ANION GAP 5 mmol/L (7-16); BUN 16 mg/dL (7-18); CHLORIDE 99 mmol/L (98-107); CO2 28 mmol/L (21-32); CREATININE 1.1 mg/dL (0.6-1.0); GLUCOSE 123 mg/dL (74-106); POTASSIUM 3.5 mmol/L (3.5-5.1); SODIUM 132 mmol/L (136-145)
[2018-04-21 16:33] LABS: SGOT 20 U/L (15-37); SGPT 28 U/L (30-65); TOTAL BILIRUBIN 0.3 mg/dL (<0.1-1.0); TOTAL PROTEIN 6.1 g/dL (6.4-8.2); TROPONIN-I < 0.04 ng/mL (<0.06)
[2018-04-21 17:53] LABS: URINE BILIRUBIN NEGATIVE (Negative); URINE BLOOD NEGATIVE (Negative); URINE CLARITY CLEAR; URINE COLOR YELLOW; URINE GLUCOSE-RANDOM* NEGATIVE (Negative); URINE KETONES NEGATIVE (Negative); URINE NITRITE-REFLEX NEGATIVE (Negative); URINE PROTEIN (DIPSTICK) NEGATIVE (Negative); URINE SPECIFIC GRAVITY 1.015 (1.005-1.035); URINE UROBILINOGEN 0.2 E.U./dl (0.2-1.0)
[2018-04-21 17:56] LABS: URINE LEUKOCYTES-REFLEX 1+ (Negative)
[2018-04-21 18:03] LABS: BACTERIA-REFLEX 1-9 Few /HPF (None Seen); CASTS None Seen /LPF (None Seen); CRYSTALS None Seen /LPF (None Seen); SQUAMOUS 0-3 Few /LPF (0-3); URINE RBC None Seen /HPF (0-2); URINE WBC-REFLEX 0-5 Rare /HPF (0-5)
[2018-04-21 18:59] VITALS: BP 122/68
[2018-04-21 19:36] VITALS: BP 132/74
[2018-04-21 19:47] VITALS: BP 145/54
[2018-04-22 03:37] VITALS: BP 153/72; BP 164/65; BP 170/64
[2018-04-22 07:20] VITALS: BP 136/55
[2018-04-22] MEDS ORDERED: KEFLEX500 M1 PO (12:10)
[2018-04-22] MEDS ORDERED: TRAZODONE HCL50 MG PO (12:11)
[2018-04-22 13:22] VITALS: BP 136/55
== END 2018-04-22 14:09 | disposition home or self-care (01) | DRG 312 ==
LOC: ER 15:51 → EROBS 18:18 → 4E 19:37
PROVIDERS: Physician Assistant
PROC: 0HQMXZZ Repair Right Foot Skin, External Approach (ICD-10-PCS; principal; 2018-04-21)
DX: I95.1 Orthostatic hypotension (principal); N39.0 Urinary tract infection, site not specified; F32.9 Major depressive disorder, single episode, unspecified; F41.9 Anxiety disorder, unspecified; K59.09 Other constipation; K57.90 Diverticulosis of intestine, part unspecified, without perforation or abscess without bleeding; J44.9 Chronic obstructive pulmonary disease, unspecified; Z79.82 Long term (current) use of aspirin; Z98.82 Breast implant status; Z87.891 Personal history of nicotine dependence; Z98.49 Cataract extraction status, unspecified eye; Z86.73 Personal history of transient ischemic attack (TIA), and cerebral infarction without residual deficits; Z79.899 Other long term (current) drug therapy
CPT/HCPCS: 10183

== ENCOUNTER → 2018-05-01 | Outpatient (CLI) | payer OTHER ==
[~2018-05-01] MED LIST changes: +KEFLEX500 M1 PO
[2018-05-01 10:13] VITALS: BP 134/62
== END ==
LOC: PUL 08:21 → SEN 08:21
DX: J44.9 Chronic obstructive pulmonary disease, unspecified (principal); G47.00 Insomnia, unspecified; K59.00 Constipation, unspecified; E46 Unspecified protein-calorie malnutrition; F03.90 Unspecified dementia, unspecified severity, without behavioral disturbance, psychotic disturbance, mood disturbance, and anxiety; F41.9 Anxiety disorder, unspecified; R53.81 Other malaise

== ENCOUNTER → 2018-05-12 | Outpatient (CLI) | payer OTHER ==
[2018-05-12 10:35] VITALS: BP 138/60
== END ==
LOC: SEN 08:09
DX: Z09 Encounter for follow-up examination after completed treatment for conditions other than malignant neoplasm (principal); G45.9 Transient cerebral ischemic attack, unspecified; F32.9 Major depressive disorder, single episode, unspecified; F41.9 Anxiety disorder, unspecified

== ENCOUNTER → 2018-06-14 | Outpatient (CLI) | payer OTHER ==
[~2018-06-14] MED LIST changes: +BIOFREEZE118 ML TOP; +FLONASE 0.05%50 MCG NASAL; +HYDROCORTISONE30 G9 TOP; +LACTULOSE10 GM/152 PO; +TYLENOL EXTRA500 MG PO
[2018-06-14 12:41] LABS: URINE BILIRUBIN NEGATIVE (Negative); URINE BLOOD NEGATIVE (Negative); URINE CLARITY CLEAR; URINE COLOR YELLOW; URINE GLUCOSE-RANDOM* NEGATIVE (Negative); URINE KETONES NEGATIVE (Negative); URINE LEUKOCYTES-REFLEX NEGATIVE (Negative); URINE NITRITE-REFLEX NEGATIVE (Negative); URINE PROTEIN (DIPSTICK) NEGATIVE (Negative); URINE SPECIFIC GRAVITY 1.025 (1.005-1.035); URINE UROBILINOGEN 0.2 E.U./dl (0.2-1.0)
== END ==
LOC: SEN 11:35
PROVIDERS: Nurse Practitioner Family
DX: N39.0 Urinary tract infection, site not specified (principal)

== ENCOUNTER → 2018-07-03 | Outpatient (CLI) | payer OTHER ==
[~2018-07-03] VITALS: Ht 162.6 cm; Wt 49.9 kg
--- NOTE | ~2018-07-03 | PATH ---
[facility] [address] [place] [address] PATHOLOGY RPT PROCEDURE Name: CHAVO OLIVA Room #: REG IJEOMA Colvin.#: [id number] Admission: 07/03/18 Date of : 37 Discharge: Report #: [id number] Path Case #: [id number] [facility] Accession Number: [id number] . 01 Material submitted: . PART A: CECAL POLYP PART B: RANDOM COLON BX'S . 01 Clinical history: . Rectal bleed, history diverticulosis Colon polyp, melanosis coli, diverticulosis Rule out microscopic colitis . 02 Diagnosis: A. Polyp, cecal polyp, endoscopic biopsy: - Tubular adenoma. - Negative for high-grade dysplasia. . B. 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 - Negative for active cryptitis. - Negative for dysplasia or malignancy. [facility] . 02 Comment: Sections of colon biopsy tissues show crypts at regular intervals and few pigmented macrophages within lamina propria. There are no granulomas. The collagen layer underneath the epithelium is not thickened.There is no distortion in crypt architecture. There is no evidence of dysplasia. (IUV:pit 07/04/2018) . 02 Electronically signed: . Misa Nunez MD, Pathologist NPI- [id number] . 01 Gross description: . A. The specimen is received in formalin, labeled "Chavo Oliva, polyp at cecum" and consists of 2 fragments of soft alamo tissue measuring 0.3 x 0.3 x 0.2 cm and 0.3 x 0.2 x 0.1 cm. They are entirely submitted in A1. . B. The specimen is received in formalin, labeled "PjRafaelagy, random colon BX" and consists of 3 fragments of soft alamo tissue measuring between 0.4 x 0.3 x 0.1 cm and 0.3 x 0.2 x 0.1 cm. They are entirely submitted in B1. (SDY; 07/03/2018) [address] [address] PATHOLOGY RPT PROCEDURE Name: CHAVO OLIVA [place] Room #: REG IJEOMA Juarez#: [id number] Admission: 07/03/18 Date of : 37 Discharge: Report #: [id number] Path Case #: [id number] . 02 Pathologist provided ICD-10: D12.0, K63.89 . 02 CPT . 657459, 422077 Performed at: [address], [place], [place] [id number] MD Dayton Garcia MD Phone: [phone] Performed at: [address] [id number] MD Misa Nunez MD Phone: [phone]
--- NOTE | ~2018-07-03 | EKG ---
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 : 1935 Requested By: Rosa Kim Order Number: [id number] MD: Toby Martinez Measurements Intervals [place] Rate: 77 P: 55 MT: 164 QRS: 62 QRSD: 87 T: 48 QT: 455 QTc: 516 Interpretive Statements Sinus rhythm Ventricular bigeminy Baseline wander in lead(s) I,III,aVL,V2 Compared to ECG 04/21/2018 16:11:00 No significant change was found Electronically Signed On 07-03-2018 16:59:46 CDT by Toby Martinez [email or web address] <ELECTRONICALLY SIGNED> By: Toby Martinez MD, [facility] 07/03/18 1659 0914 0914 Toby Martinez MD, [facility] /EPI
== END | disposition home or self-care (01) ==
LOC: GI 08:34
DX: D12.0 Benign neoplasm of cecum (principal); K57.30 Diverticulosis of large intestine without perforation or abscess without bleeding; K64.8 Other hemorrhoids; K63.89 Other specified diseases of intestine; E78.00 Pure hypercholesterolemia, unspecified; J44.9 Chronic obstructive pulmonary disease, unspecified; K21.9 Gastro-esophageal reflux disease without esophagitis; M10.9 Gout, unspecified; M19.90 Unspecified osteoarthritis, unspecified site; F32.9 Major depressive disorder, single episode, unspecified; F41.9 Anxiety disorder, unspecified; F03.90 Unspecified dementia, unspecified severity, without behavioral disturbance, psychotic disturbance, mood disturbance, and anxiety; Z86.73 Personal history of transient ischemic attack (TIA), and cerebral infarction without residual deficits; Z98.41 Cataract extraction status, right eye; Z98.42 Cataract extraction status, left eye; Z98.890 Other specified postprocedural states; Z79.899 Other long term (current) drug therapy
CPT/HCPCS: 62110; 62900

== ENCOUNTER → 2018-09-08 | Outpatient (CLI) | payer OTHER ==
[~2018-09-08] VITALS: Ht 162.6 cm; Wt 51.8 kg
[~2018-09-08] MED LIST changes: +LOPERAMIDE 2 MG2 M1 PO; +MEDROLDOSEPACK PO
[2018-09-08 09:05] VITALS: BP 134/58
== END ==
LOC: PAIN 06:47
DX: M54.2 Cervicalgia (principal); G89.29 Other chronic pain; M25.559 Pain in unspecified hip; Z79.899 Other long term (current) drug therapy; Z87.891 Personal history of nicotine dependence

== ENCOUNTER → 2018-10-04 | Outpatient (CLI) | payer OTHER ==
[~2018-10-04] VITALS: Ht 162.6 cm; Wt 51.4 kg
[~2018-10-04] MED LIST changes: +OXYBUTYNIN 5 MG5 M2 PO
--- NOTE | ~2018-10-04 | HPC ---
[facility] [address] [address] [place] [address] PAIN MANAGEMENT CONSULTATION Name: CHAVO FRAZIER Room #: REG Jayna Larry#: [id number] Admission: 10/04/18 Attend Phys: Cristiana Duarte MD Discharge: Date of : 36 Report #: [id number] THIS REPORT FOR: //name// CC: Cristiana Olivera DATE OF SERVICE: 10/06/2018 CHIEF COMPLAINT: Back and hip pain. HISTORY: The patient is an 82-year-old female who has been seen in the pain clinic because of lumbar radiculopathy. She has undergone epidural steroid injections in the past and gleaned benefits from these. She notes greater than 50% improvement. She returns today indicating that her pain has again started to be more problematic. It involves her low back with radiation down into her hip and radiating down the side of her right leg. She did fall on 08/21/2018 on the right knee. Rates her pain as a 6-7 at this juncture. Walking, standing and getting in and out of bed can be problematic. She feels that medications, heat and cold and repositioning can help with the pain and discomfort. She has had no complication from the procedures in the past. She has returned today and would like to proceed with another injection. The patient has used tramadol in the past and found it helpful. She would like to continue with that medication. ALLERGIES: No known drug allergies. CURRENT MEDICATIONS: Zyrtec 5 mg, vitamin B12, trazodone 50 mg at bedtime, Spiriva inhaler, omeprazole 20 mg, multivitamin, Lidoderm patch, gabapentin 300 mg at bedtime, Tylenol regular strength, multivitamin, vitamin D3, calcium 600 mg b.i.d., probiotic, lactobacillus, aspirin 81 mg, docusate p.o. 100 mg, lactulose 10 mg p.r.n., Lipitor 10 mg, Aricept 5 mg, total of 10 mg daily, Advair 2 puffs b.i.d., alprazolam 0.25 mg, multivitamin, B12, trazodone 100 mg, alendronate 70 mg weekly. PAIN CLINIC/ASSESSMENT/PQRS: 1. The patient has arthritic changes in her lower back as well as in her knees. She has not been treated for rheumatoid arthritis. The patient has arthritic changes involving the joints of her fingers. 2. Height 5 feet 4 inches, weight 113 pounds, BMI is 95. 3. Vital signs, 141/64, pulse 76, respiratory rate 20, room air saturation is 100%. 4. Pain intensity 6-7. 5. Fall risk. The patient has not fallen since we saw her last, but did fall on 08/21/2018. 6. Blood thinner. The patient is not on a blood thinning medication. 7. History of hypertension. The patient is not being treated for hypertension. 8. Opioid therapy. The patient does receive tramadol from the pain clinic. [address] [address] PAIN MANAGEMENT CONSULTATION Name: CHAVO FRAZIER Room #: REG CLJayna Juarez#: [id number] Admission: 10/04/18 Attend Phys: Cristiana Daurte MD Discharge: Date of : 36 Report #: [id number] 9. Risk assessment tool, low for opioid use. 10. Functional assessment . 11. Recreational drugs. The patient denies use of recreational drugs. 12. Tobacco: The patient is a former smoker, stopped in 2002, one and half to two packs of cigarettes per day, smoked for 50 years. 13. Alcohol: The patient denies use of alcoholic beverages at this juncture. PHYSICAL EXAMINATION: GENERAL: The patient is a well-developed, well-nourished white female. Appears her stated age. She is alert and oriented x3. She is slim. Her affect is appropriate. Speech is fluent. HEAD, EYES, EARS, NOSE, AND THROAT: Normocephalic, atraumatic. Extraocular eye muscles intact. Sclerae nonicteric. Mucous membranes are moist. Hearing is within normal limits. The patient's daughter is with her. NECK: Without adenopathy or JVD. LUNGS: Clear to auscultation without rhonchi. ABDOMEN: Nontender. Bowel sounds present. HEART: Regular rate. MUSCULOSKELETAL: Without significant scoliosis, kyphosis or lordosis. Upper extremity muscle strength is judged to be 4/5 for the major muscle groups without sensory changes. Lower extremity, the patient has complaints of pain and discomfort in the lower portion of her back with pain radiating down in the L5-S1 distribution involving the right leg. The patient has a thin body habitus. IMPRESSION: 1. Right and left posterior iliac spine and discomfort. 2. Right lumbar radiculopathy, L4-L5 distribution today. Has at L5-S1 distribution in the past. 3. History of right knee pain and improved after the last injection. 4. Lumbar radiculopathy, stable. 5. Hypercholesterolemia. 6. Chronic obstructive pulmonary disease. 7. Unspecified; dementia without behavioral disturbances. 8. Anxiety. 9. Major depressive disorder. 10. Age-related osteoporosis. RECOMMENDATIONS: We discussed treatment options with the patient. Risks and benefits of an epidural steroid injection were again reviewed. Possible complications of the procedure, which could include but are not limited to infection, increased muscle soreness, headache, bleeding, no improvement, paralysis. The patient elects to proceed. PROCEDURE NOTE: The patient was assisted in getting on the examination table. She was placed in the prone position. A pillow was placed on her abdomen for [address] [address] PAIN MANAGEMENT CONSULTATION Name: CHAVO FRAZIER Room #: REG [facility] [id number] Admission: 10/04/18 Attend Phys: Cristiana Duarte MD Discharge: Date of : 36 Report #: [id number] appropriate bolstering and improved positioning. Fluoroscopy using anterior, posterior as well as lateral imaging were implemented. Her back was sterilely prepped with a Betadine solution. This was done 3 times. A 0.25% bupivacaine was then injected and a right paramedian approach. A 17-gauge Tuohy with loss of resistance technique was used to gain access to the epidural space. There was no CSF, heme or paresthesia. A total of 80 mg Depo-Medrol, 40 mg triamcinolone and 2 mL of 0.25% bupivacaine was injected. The patient tolerated the procedure well. There were no complications. She remained in the Pain Clinic for an appropriate amount of time. A script for tramadol 50 mg 1 p.o. every 6 hours p.r.n., 30 tablets have been dispensed. She will call us if she has any concerns. We would like to thank you for letting us to participate in her care. We hope she continues to improve. By: [phone] Cristiana Duarte MD /ZENIA
[2018-10-04 10:30] VITALS: BP 141/68
== END | disposition home or self-care (01) ==
LOC: PAIN 05:46
DX: M54.16 Radiculopathy, lumbar region (principal); G89.29 Other chronic pain; M25.561 Pain in right knee; E78.00 Pure hypercholesterolemia, unspecified; J44.9 Chronic obstructive pulmonary disease, unspecified; N18.9 Chronic kidney disease, unspecified; Z79.82 Long term (current) use of aspirin; F41.9 Anxiety disorder, unspecified; F32.9 Major depressive disorder, single episode, unspecified; M81.0 Age-related osteoporosis without current pathological fracture; F03.90 Unspecified dementia, unspecified severity, without behavioral disturbance, psychotic disturbance, mood disturbance, and anxiety; Z98.890 Other specified postprocedural states; Z79.899 Other long term (current) drug therapy; K21.9 Gastro-esophageal reflux disease without esophagitis

== ENCOUNTER 2018-11-02 19:33 | Emergency (ER) | payer OTHER ==
[~2018-11-02] VITALS: Ht 162.6 cm; Wt 48.5 kg
[2018-11-02 20:39] LABS: ABSOLUTE NEUTROPHILS 2.3 thou/uL (1.4-8.2); BASOPHILS 0.9 % (0.0-2.0); EOSINOPHILS 3.1 % (0.0-3.0); HEMATOCRIT 36.9 % (37.0-47.0); HEMOGLOBIN 12.5 gm/dL (12.0-15.0); LYMPHOCYTES 40.4 % (24.0-44.0); MCH 32.6 pg (26.0-34.0); MCV 95.9 fL (80.0-100.0); MONOCYTES 8.5 % (1.0-8.0); PLATELET COUNT 223 thou/uL (150-400); POLYS 47.1 % (36.0-66.0); RBC 3.85 mil/uL (4.20-5.00); RDW 12.9 % (10.5-14.5); WBC 4.9 thou/uL (4.0-11.0)
[2018-11-02 20:44] LABS: CALCIUM 8.5 mg/dL (8.5-10.1); CREATININE 0.9 mg/dL (0.6-1.0); POTASSIUM 3.2 mmol/L (3.5-5.1)
[2018-11-02] MEDS ORDERED: PROBIOTIC1 EAC1 PO (20:51)
[2018-11-02 20:54] LABS: ALBUMIN 3.2 g/dL (3.4-5.0); TOTAL BILIRUBIN 0.3 mg/dL (<0.1-1.0)
[2018-11-02 21:28] LABS: URINE CLARITY CLEAR; URINE COLOR YELLOW
[2018-11-02 21:29] LABS: URINE BILIRUBIN NEGATIVE (Negative); URINE BLOOD NEGATIVE (Negative); URINE GLUCOSE-RANDOM* NEGATIVE (Negative); URINE KETONES NEGATIVE (Negative); URINE LEUKOCYTES-REFLEX NEGATIVE (Negative); URINE NITRITE-REFLEX NEGATIVE (Negative); URINE PROTEIN (DIPSTICK) NEGATIVE (Negative); URINE UROBILINOGEN 0.2 E.U./dl (0.2-1.0)
[2018-11-02 22:20] VITALS: BP 140/79
== END 2018-11-02 22:38 | disposition home or self-care (01) ==
LOC: ER 19:33
PROVIDERS: Emergency Medicine
DX: K56.7 Ileus, unspecified (principal); E87.6 Hypokalemia; R19.7 Diarrhea, unspecified; F32.9 Major depressive disorder, single episode, unspecified; F41.9 Anxiety disorder, unspecified; J44.9 Chronic obstructive pulmonary disease, unspecified; Z90.89 Acquired absence of other organs; Z87.891 Personal history of nicotine dependence

== ENCOUNTER 2018-12-10 09:35 | Emergency (ER) | payer OTHER ==
[~2018-12-10] VITALS: Ht 162.6 cm; Wt 48.1 kg
[2018-12-10 10:03] LABS: BASOPHILS 0.6 % (0.0-2.0); EOSINOPHILS 1.5 % (0.0-3.0); HEMATOCRIT 36.8 % (37.0-47.0); HEMOGLOBIN 12.3 gm/dL (12.0-15.0); LYMPHOCYTES 18.6 % (24.0-44.0); MCH 31.7 pg (26.0-34.0); MCHC 33.3 g/dL (28.0-37.0); MCV 95.2 fL (80.0-100.0); MONOCYTES 11.2 % (1.0-8.0); PLATELET COUNT 284 thou/uL (150-400); POLYS 68.1 % (36.0-66.0); RBC 3.87 mil/uL (4.20-5.00); RDW 12.7 % (10.5-14.5); WBC 8.8 thou/uL (4.0-11.0)
[2018-12-10 10:09] LABS: ANION GAP 5 mmol/L (7-16); BUN 14 mg/dL (7-18); CALCIUM 8.9 mg/dL (8.5-10.1); CHLORIDE 104 mmol/L (98-107); CO2 28 mmol/L (21-32); GLUCOSE 94 mg/dL (74-106); POTASSIUM 3.9 mmol/L (3.5-5.1); SODIUM 137 mmol/L (136-145)
[2018-12-10 10:18] LABS: TROPONIN-I <0.06 ng/mL (<0.06)
[2018-12-10] MEDS ORDERED: ASPIR 8181 MG PO (11:43)
[2018-12-10 13:19] VITALS: BP 123/65
--- NOTE | 2018-12-11 08:36 | EKG ---
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: SARIKA : 1935 Requested By: Deven Siegel Order Number: [id number] MD: Toby Martinez Measurements Intervals [place] Rate: 72 P: 86 [place]: 167 QRS: 81 QRSD: 77 T: 61 QT: 398 QTc: 436 Interpretive Statements Sinus rhythm Normal tracing Compared to ECG 07/03/2018 09:14:55 Ventricular premature complex(es) no longer present Electronically Signed On 12-11-2018 8:36:37 SLD INCLUSION TEACHER by Toby Martinez [email or web address] <ELECTRONICALLY SIGNED> By: Toby Martinez MD, [facility] 12/11/18 0836 0940 9 Toby Martinez MD, [facility] /EPI
== END 2018-12-10 13:23 | disposition home or self-care (01) ==
LOC: ER 09:35
PROVIDERS: Emergency Medicine
DX: R07.89 Other chest pain (principal); R05 Cough; F32.9 Major depressive disorder, single episode, unspecified; F41.9 Anxiety disorder, unspecified; J44.9 Chronic obstructive pulmonary disease, unspecified; Z87.891 Personal history of nicotine dependence

== ENCOUNTER → 2019-05-02 | Outpatient (CLI) | payer OTHER | LOC: RAD 02:48 | DX: Z12.31 Encounter for screening mammogram for malignant neoplasm of breast (principal) ==

== ENCOUNTER 2019-06-03 01:14 | Emergency (ER) | payer OTHER ==
[~2019-06-03] VITALS: Ht 162.6 cm; Wt 49.0 kg
[2019-06-03] MEDS ORDERED: BACTRIM DS TAB1 EACH PO (03:45)
[2019-06-03 04:09] VITALS: BP 128/60
[2019-06-03 08:26] LABS: URINE BILIRUBIN NEGATIVE (Negative); URINE BLOOD NEGATIVE (Negative); URINE CLARITY CLEAR; URINE COLOR YELLOW; URINE GLUCOSE-RANDOM* NEGATIVE (Negative); URINE KETONES NEGATIVE (Negative); URINE LEUKOCYTES-REFLEX TRACE (Negative); URINE NITRITE-REFLEX NEGATIVE (Negative); URINE PROTEIN (DIPSTICK) NEGATIVE (Negative); URINE SPECIFIC GRAVITY <= 1.005 (1.005-1.035); URINE UROBILINOGEN 0.2 E.U./dl (0.2-1.0)
== END 2019-06-03 04:26 | disposition home or self-care (01) ==
LOC: ER 01:14
PROVIDERS: Emergency Medicine
DX: L02.512 Cutaneous abscess of left hand (principal); J44.9 Chronic obstructive pulmonary disease, unspecified; Z87.891 Personal history of nicotine dependence; Z79.899 Other long term (current) drug therapy

== ENCOUNTER → 2019-07-30 | Outpatient (CLI) | payer OTHER ==
[~2019-07-30] MED LIST changes: +BACTRIM DS TAB1 EACH PO
== END ==
LOC: MRI 09:13
DX: R90.82 White matter disease, unspecified (principal); F32.9 Major depressive disorder, single episode, unspecified; F41.9 Anxiety disorder, unspecified

== ENCOUNTER → 2019-10-22 | Outpatient (CLI) | payer OTHER | LOC: RAD 10:49 | DX: M41.86 Other forms of scoliosis, lumbar region (principal); M47.816 Spondylosis without myelopathy or radiculopathy, lumbar region; M53.86 Other specified dorsopathies, lumbar region; M25.552 Pain in left hip; K21.9 Gastro-esophageal reflux disease without esophagitis; J44.9 Chronic obstructive pulmonary disease, unspecified ==

== ENCOUNTER → 2019-11-02 | Outpatient (CLI) | payer OTHER ==
[~2019-11-02] VITALS: Ht 162.6 cm; Wt 51.2 kg
[2019-11-02 10:18] VITALS: BP 145/69
--- NOTE | 2019-11-02 10:29 | NUR ---
Pain Clinic Assessment: 1. History of Osteoarthritis: ALL OVER History of Rheumatoid Arthritis: NONE 2. Height: 5 ft. 4 in. 162.6 cm. Weight: 112.8 lb. oz. 51.166 kg. Patient's BMI: 19.4 3. Vital Signs: BP: 145/69 Pulse: 81 Resp: 16 Temp: 02 Sat: ECG Mon: 4. Pain Intensity: 6-7 5. Fall Risk: Dizziness: N Needs help standing or walking: N Fallen in the last 3 months: N Fall risk comments: 6. Patient on Blood Thinner: None 7. History of Hypertension: N 8. Opioid Therapy greater than 6 weeks: N Opiate Contract Signed: 9. Risk Assessment Tool Provided: LOW (1-3) 10. Functional Assessment Tool: 11. Recreational Drug Use: Never Drug Type: Tobacco Use: Former Smoker Tobacco Type: Amount or Packs/day: How Many Years: Alcohol Use: Yes Frequency: Special Occasions Quant: GLASS OF WINE ONCE IN A WHILE
--- NOTE | 2019-11-06 14:24 | HPC ---
[facility] [place] [address] PAIN MANAGEMENT CONSULTATION Name: CHAVO FRAZIER Room #: REG IJEOMA Vinicius.#: [id number] Admission: 11/02/19 Attend Phys: Cristiana Duarte MD Discharge: Date of : 36 Report #: [id number] THIS REPORT FOR: //name// CC: Cristiana Olivera DATE OF SERVICE: 11/02/2019 CHIEF COMPLAINT: "Pain in the low back area has returned. I am having sciatica down my left leg and low back area." HISTORY: The patient is an 84-year-old female who has been seen in the pain clinic in the past because of lumbar radiculopathy. She returns today indicating that she has gleaned benefits in the past from epidural steroid injections. She has noted some increased pain and discomfort in the lower portion of her back. Pain is radiating down the left buttocks and back area. Over the last 3-4 weeks, the pain has increased. She describes it as aching, constant and is exacerbated with walking. She has difficulty getting in and out of the car. Pain improves somewhat when she lies down. She rates her pain as a 6-7. She has returned to the pain clinic with a hope that another injection would be beneficial. ALLERGIES: No known drug allergies. CURRENT MEDICATIONS: Aspirin 81 mg, probiotic lactobacillus acidophilus, Advair 250/50 Diskus, Imodium 2 mg p.r.n. diarrhea, Flonase 0.05% nasal spray, Spiriva inhaler, trazodone 50 mg at bedtime, Tylenol Extra Strength 500 mg b.i.d., Senna b.i.d., Aricept 5 mg, Cymbalta 60 mg, vitamin B12, iron, calcium/vitamin b.i.d., Colace 100 mg b.i.d., alendronate 5 mg tablets 70 mg weekly. PAIN CLINIC ASSESSMENT AND PQRS: 1. The patient has pain in the lower portion of her back and her knees. She is not being treated for rheumatoid arthritis. Does have some arthritic changes in her fingers. 2. Height 5 feet 4 inches, weight 112 pounds, BMI is 19.4. 3. Vital signs: Blood pressure 145/69, pulse 81, respiratory rate 16, room air saturation is 95%. 4. Pain intensity, -05/16. 5. Fall risk. The patient has not fallen in the last 3 months. 6. Blood thinner. The patient is not on a blood thinning medication. 7. Hypertension. The patient is not being treated for hypertension. 8. Opioids greater than 6 weeks. The patient receives medications from one source, her primary. 9. Risk assessment tool, low for opioid use. 10. Functional assessment tool, . 11. Recreational drug use. The patient denies. [address] [address] PAIN MANAGEMENT CONSULTATION Name: CHAVO FRAZIER Room #: REG [facility].#: [id number] Admission: 11/02/19 Attend Phys: Cristiana Duarte MD Discharge: Date of : 36 Report #: [id number] 12. Tobacco. The patient is a former smoker. 13. Alcohol. The patient occasionally drinks a glass of wine. PHYSICAL EXAMINATION: GENERAL: The patient is a well-developed, well-nourished, white female. Appears her stated age. She is alert and oriented x 3 today. HEENT: Normocephalic, atraumatic. Extraocular eye muscles intact. Sclerae nonicteric. Hearing is within normal limits. The patient is unaccompanied. NECK: Without adenopathy or JVD. LUNGS: Generally clear to auscultation. ABDOMEN: Nontender. Bowel sounds present. HEART: Regular rate. MUSCULOSKELETAL: Without significant scoliosis, kyphosis, or lordosis. The patient has pain and discomfort in the L5-S1 dermatomal distribution in the left buttocks. The patient has a thin body habitus. IMPRESSION: 1. Right knee pain and right buttock pain, left low back pain and left buttock pain. 2. History of right knee pain and has undergone knee injections. 3. Lumbar radiculopathy. 4. Hypercholesterolemia. 5. Chronic obstructive pulmonary disease. 6. Unspecified dementia without behavioral disturbances. 7. Anxiety. 8. Major depressive disorder. 9. Age-related osteoporosis. RECOMMENDATIONS: We discussed treatment options with the patient. Risks and benefits of an epidural steroid injection were discussed. The patient states that she remembers the sequence of events. She is aware that one can develop epidural bleeding, increased muscle soreness, headache, nerve trauma and the elects to proceed. PROCEDURE NOTE: The patient was taken to the procedure area. She was then assisted in getting on the examination table. A pillow was placed under her abdomen to bolster and improve positioning. Her back was sterilely prepped with a Betadine solution. Fluoroscopy using anterior, posterior as well as lateral viewing were implemented. A 0.25% bupivacaine was infiltrated at the L5-S1 midline area. A 17-gauge Tuohy with loss of resistance technique was used to gain access to the epidural space. There was no CSF, heme or paresthesia. Total of 120 mg triamcinolone and 2 mL of 0.25% bupivacaine was injected. The patient tolerated the procedure well. Total of 12 seconds fluoroscopy time was used. The patient's pain decreased to 0 at the time of discharge. She will follow up in the future as needed. [facility] [address] [place] [address] PAIN MANAGEMENT CONSULTATION Name: CHAVO FRAZIER Room #: REG CL [facility]ius.#: [id number] Admission: 11/02/19 Attend Phys: Cristiana Duarte MD Discharge: Date of : 36 Report #: [id number] We would like to thank you for letting us participate in her care. We hope she continues to improve. <ELECTRONICALLY SIGNED> By: Cristiana Duarte MD 11/06/19 1424 1547 0020 Cristiana Duarte MD /PMT
== END | disposition home or self-care (01) ==
LOC: PAIN 06:46
DX: M54.16 Radiculopathy, lumbar region (principal); E78.00 Pure hypercholesterolemia, unspecified; J44.9 Chronic obstructive pulmonary disease, unspecified; F41.9 Anxiety disorder, unspecified; M32.9 Systemic lupus erythematosus, unspecified; M81.0 Age-related osteoporosis without current pathological fracture; K21.9 Gastro-esophageal reflux disease without esophagitis; I12.9 Hypertensive chronic kidney disease with stage 1 through stage 4 chronic kidney disease, or unspecified chronic kidney disease; N18.9 Chronic kidney disease, unspecified; Z79.82 Long term (current) use of aspirin; Z79.899 Other long term (current) drug therapy; Z87.891 Personal history of nicotine dependence

== ENCOUNTER → 2020-06-18 | Outpatient (CLI) | payer OTHER | LOC: RAD 11:27 | PROVIDERS: ATTEND Internal Medicine | DX: J44.9 Chronic obstructive pulmonary disease, unspecified (principal) ==

== ENCOUNTER → 2020-07-02 | Outpatient (CLI) | payer OTHER | LOC: BC 09:34 | PROVIDERS: ATTEND Family Medicine | DX: Z12.31 Encounter for screening mammogram for malignant neoplasm of breast (principal) ==

== ENCOUNTER 2021-01-03 12:43 | Inpatient (IN) | payer OTHER ==
[~2021-01-03] VITALS: Ht 154.9 cm; Wt 62.4 kg
[2021-01-03] VITALS (26 sets, daily range): BP systolic 93–175; BP diastolic 34–89
[2021-01-03 13:00] LABS: BE(vivo) -10.3 mmol/L (-2 to +3); HCO3 18.9 mmol/L (22.0-26.0); PCO2 58.6 mmHg (35.0-45.0); PO2 319.2 mmHg (80.0-100.0); sO2 99.6 % (92.0-98.0)
[2021-01-03 13:01] LABS: pH 7.127 (7.360-7.450)
[2021-01-03 14:01] LABS: HEMOGLOBIN 10.7 gm/dL (12.0-15.0); MCH 31.8 pg (26.0-34.0)
[2021-01-03 14:03] LABS: CALCIUM 7.6 mg/dL (8.5-10.1); CREATININE 2.2 mg/dL (0.6-1.0); MCHC 32.3 g/dL (28.0-37.0); MCV 98.4 fL (80.0-100.0); POTASSIUM 5.2 mmol/L (3.5-5.1); RBC 3.35 mil/uL (4.20-5.00); RDW 12.9 % (10.5-14.5); WBC 10.6 thou/uL (4.0-11.0)
[2021-01-03 14:13] LABS: ALBUMIN 3.3 g/dL (3.4-5.0); TOTAL BILIRUBIN 0.6 mg/dL (0.2-1.0); TOTAL PROTEIN 5.7 g/dL (6.4-8.2); TROPONIN-I 0.18 ng/mL (<0.06)
[2021-01-03 14:39] LABS: PLATELET COUNT 206 thou/uL (150-400)
[2021-01-03 14:58] LABS: APTT 28.2 Seconds (24.5-32.8); INR 1.4; PROTIME 15.2 Seconds (9.3-11.4)
[2021-01-03 15:05] LABS: AMP/METHAMP Negative (Negative); BARBITURATES POSITIVE (Negative); BENZODIAZEPINES Negative (Negative); COCAINE Negative (Negative); METHADONE Negative (Negative); OPIATES Negative (Negative); PCP Negative (Negative)
[2021-01-03 15:12] LABS: URINE BILIRUBIN NEGATIVE (Negative); URINE BLOOD 2+ (Negative); URINE CLARITY SL CLOUDY; URINE COLOR YELLOW; URINE GLUCOSE-RANDOM* TRACE (Negative); URINE KETONES NEGATIVE (Negative); URINE LEUKOCYTES-REFLEX NEGATIVE (Negative); URINE NITRITE-REFLEX NEGATIVE (Negative); URINE PROTEIN (DIPSTICK) NEGATIVE (Negative); URINE SPECIFIC GRAVITY >= 1.030 (1.005-1.035); URINE UROBILINOGEN 0.2 E.U./dl (0.2-1.0)
[2021-01-03 15:23] LABS: AMORPHOUS URATES Few /LPF (None Seen); BACTERIA-REFLEX None Seen /HPF (None Seen); CASTS None Seen /LPF (None Seen); MUCUS 0-3 Light strn/LPF (None Seen); SQUAMOUS 0-3 Few /LPF (0-3); URINE RBC 3-10 Few /HPF (0-2); URINE WBC-REFLEX None Seen /HPF (0-5)
[2021-01-03 15:36] LABS: ANISOCYTOSIS SLIGHT
[2021-01-03 15:49] LABS: BE(vivo) -15.6 mmol/L (-2 to +3); PCO2 34.6 mmHg (35.0-45.0); PO2 203.4 mmHg (80.0-100.0); pH 7.159 (7.360-7.450); sO2 99.1 % (92.0-98.0)
--- NOTE | 2021-01-03 19:19 | NUR ---
PT ARRIVED TO ICU 1809. ON 15L NON REBREATHER. IDENTIFYING SELF. TREMOR PRESENT UP EXTREMITIES. AFEBRILE. ADEQUTE OUTPUTE. DIMINISHED LUNG SOUNDS. NOTIFIED OF PT ARRIVAL. ORDERS RECIEVED VIA DR. HENDERSON, BMP DRAWN. PT PLACED ON BIPAP
[2021-01-03 19:27] LABS: CALCIUM 6.5 mg/dL (8.5-10.1); POTASSIUM 4.4 mmol/L (3.5-5.1)
[2021-01-03 20:52] LABS: HCO3 15.1 mmol/L (22.0-26.0); PCO2 38.5 mmHg (35.0-45.0); PO2 190.8 mmHg (80.0-100.0); sO2 99.1 % (92.0-98.0)
[2021-01-04] VITALS (66 sets, daily range): BP systolic 100–191; BP diastolic 46–141
--- NOTE | 2021-01-04 05:42 | NUR ---
PATIENT REMAINS A/O TO PERSON. ON BIPAP. AFEBRILE. VSS. TREMORS. FAMILY UPDATED. GOODWIN IN PLACE WITH GOOD U/O. DENIES NEEDS. WILL KEEP MONITORING
[2021-01-04 10:09] LABS: HEMATOCRIT 29.4 % (37.0-47.0); HEMOGLOBIN 9.4 gm/dL (12.0-15.0); MCH 31.1 pg (26.0-34.0); MCHC 32.1 g/dL (28.0-37.0); MCV 97.1 fL (80.0-100.0); RBC 3.03 mil/uL (4.20-5.00); RDW 13.1 % (10.5-14.5); WBC 15.7 thou/uL (4.0-11.0)
[2021-01-04 10:31] LABS: ALBUMIN 3.4 g/dL (3.4-5.0); CALCIUM 7.1 mg/dL (8.5-10.1); MAGNESIUM 1.6 mg/dL (1.8-2.4); POTASSIUM 3.9 mmol/L (3.5-5.1); TOTAL BILIRUBIN 2.1 mg/dL (0.2-1.0); TOTAL PROTEIN 5.4 g/dL (6.4-8.2); TROPONIN-I 0.35 ng/mL (<0.06)
[2021-01-04 12:56] LABS: BE(vivo) -12.2 mmol/L (-2 to +3); HCO3 13.7 mmol/L (22.0-26.0); PCO2 31.3 mmHg (35.0-45.0); PO2 106.1 mmHg (80.0-100.0); sO2 97.2 % (92.0-98.0)
[2021-01-04 13:56] LABS: CALCIUM 7.3 mg/dL (8.5-10.1); CREATININE 3.2 mg/dL (0.6-1.0); MAGNESIUM 1.7 mg/dL (1.8-2.4); POTASSIUM 3.9 mmol/L (3.5-5.1)
[2021-01-04 14:03] LABS: LIPASE 394 U/L (73-393)
--- NOTE | 2021-01-04 14:14 | EKG ---
[address] [place] [address] ELECTROCARDIOGRAM REPORT Name: CHAVO FRAZIER Room #: 240-P ADM IN M.R.#: [id number] Admission: 01/03/21 Attend Phys: Nilay Macias MD Discharge: Date of : 36 Report #: [id number] [facility] ED Test Date: 2021-01-03 Test Time: 14:48:12 Pat Name: CHAVO FRAZIER Department: Room: 240 Gender: F Spice Blender: [facility] : 1935 Requested By: Anup Angel Order Number: [id number] MD: Toby Martinez Measurements Intervals [place] Rate: 88 P: 88 CT: 171 QRS: 85 QRSD: 81 T: 65 QT: 394 QTc: 477 Interpretive Statements Sinus rhythm No significant abnormality Compared to ECG 12/10/2018 09:40:17 No significant changes Electronically Signed On 01-04-2021 14:13:43 CATHETER BUILDER by Toby Martinez [email or web address] <ELECTRONICALLY SIGNED> By: Toby Martinez MD, [facility] 01/04/21 1413 1448 1448 Toby Martinez MD, FACC /EPI
--- NOTE | 2021-01-04 14:19 | EKG ---
[address] [place] [address] ELECTROCARDIOGRAM REPORT Name: CHAVO FRAZIER Room #: 240- ADM IN M.R.#: [id number] Admission: 01/03/21 Attend Phys: Nilay Macias MD Discharge: Date of : 36 Report #: [id number] [facility] Test Date: 2021-01-04 Test Time: 09:42:08 Pat Name: CHAVO FRAZIER Department: Room: 240 Gender: F Renewable Energy Trader: : 1935 Requested By: Nilay Macias Order Number: [id number] MD: Toby Martinez Measurements Intervals [place] Rate: 104 P: 90 [place]: 162 QRS: 80 QRSD: 77 T: 29 QT: 377 QTc: 496 Interpretive Statements Sinus tachycardia No significant abnormality Compared to ECG 01/03/2021 14:48:12 No significant change was found Electronically Signed On 01-04-2021 14:19:21 FLIGHT CONTROL MANAGER by Toby Martinez [email or web address] <ELECTRONICALLY SIGNED> By: Toby Martinez MD, [facility] 01/04/21 1419 0942 0942 Toby Martinez MD, FACC /EPI
[2021-01-04 14:32] LABS: AMYLASE 1615 U/L (25-115)
--- NOTE | 2021-01-04 15:16 | NUR ---
PT ON BIPAP WITH SETTINGS UNCHANGED. PT HAS SIGNIFICANT TREMORS IN ALL 4 EXTREMITIES. PT RECEIVING MAGNESIUM REPLACEMENT PER [facility] PROTOCAL. SSI INIATED. PT FEBRILE (T-MAX 100.1), ADEQUATE UOP THOUGH LOW AND GREEN IN COLOR, NO BM, NO NURTITION ORDERED. PT DOES FSC BUT IS CONFUSED. PERIORBITAL EDEMA IS NEW OVER RIGHT EYE, PROVIDER AWARE. PT AND FAMILY HAVE BEEN UPDATED AND EDUCATED ON PT CONDITION AND POC. PT SLOWLY PROGRESSING TOWARDS POC.
[2021-01-05] VITALS (68 sets, daily range): BP systolic 137–202; BP diastolic 51–128
--- NOTE | 2021-01-05 04:28 | NUR ---
PATIENTS'S DAUGHTER RANJANA CALLED TO GET AN UPDATE, THIS RN SPOKE WITH HER AND LET HER KNOW PT IS ON NC 3L OXYGEN, OFF BI PAP, RESTING PEACFULLY, WENT TO CT FOR ABDOMEN AROUND 2300, AND HER BP HAD BEEN ELEVATED, WITH CARIOLOGY AWARE AND WILL CONT. TO MONITOR. DAUGHTER WANTED US TO KNOW SHE HAD A [facility]CTORS APPT WITH HER PCP FOR HER EARS TO BE CLEANED, I ASKED HER TO CONTACT THEM TO TELL THE MD SHE WAS HERE IN THE ICU. HER ERS MAY NEED TO BE CLEANED LATER WHEN OUT OF ICU. SHE HAS A HEARING AID APPT, NEAR THE END OF JANUARY. SHE WBATED US TO KNOW SHE HAD BEEN PROVIDERING HER MOM NICOTINE SUCKERS, ABOUT 10 A DAY. SHE ALSO WANTED TO KNOW IF HER MOM NEEDS TO REMAIN ON MEDICATION FOR TREMORS OR IF IT CAN BE STOPPED. I LET RANJANA KNOW, I WOULD MAKE NOTE OF HER QUESTIONS AND PASS IT ON TO THE DAY SHIFT RN IN THE AM.
[2021-01-05 05:16] LABS: HEMATOCRIT 28.6 % (37.0-47.0); HEMOGLOBIN 9.5 gm/dL (12.0-15.0); MCH 31.7 pg (26.0-34.0); MCHC 33.1 g/dL (28.0-37.0); MCV 95.7 fL (80.0-100.0); RBC 2.99 mil/uL (4.20-5.00); RDW 13.2 % (10.5-14.5); WBC 20.1 thou/uL (4.0-11.0)
[2021-01-05 05:59] LABS: CALCIUM 7.6 mg/dL (8.5-10.1); CREATININE 3.7 mg/dL (0.6-1.0); POTASSIUM 4.7 mmol/L (3.5-5.1)
--- NOTE | 2021-01-05 06:17 | NUR ---
She CRUZ NP ROUNDED 0400, AWARE OF HTN, REVIEW HOME MEDICATIONS, NO NEW ORDERS. WOULD LIKE DAY SHIFT TO REVIEW HOME MEDICATIONS AND EVLAUATE FOR RESUMING HOME MEDICAITON ORDERS FOR ANXIETY AND TREMORS. [facility] MAY BE ABLE TOPROVIDE MEDICATION LIST, OR PCP.
--- NOTE | 2021-01-05 07:06 | NUR ---
DR CLAY, ROUNDED UP DATED GIVEN ON URINE OUTPUT, AND IV FLIDS.
[2021-01-05 08:28] LABS: ALBUMIN 3.3 g/dL (3.4-5.0); DIRECT BILIRUBIN 2.9 mg/dL (<0.1-0.2); TOTAL BILIRUBIN 4.2 mg/dL (0.2-1.0); TOTAL PROTEIN 5.3 g/dL (6.4-8.2)
--- NOTE | 2021-01-05 08:37 | NUR ---
ASSUMMED CARE FROM THE NIGHT NURSE AT 0700. SPEECH THERAPY AT THE BEDSIDE FOR SWALLOW STUDY.
[2021-01-05 13:20] LABS: PROTIME 75.3 Seconds (9.3-11.4)
[2021-01-05 13:27] LABS: INR 7.5
--- NOTE | 2021-01-05 13:55 | NUR ---
chart review. ria spoke with awlter SIMS, " she is in [place], orders room and eat in there room. get check on once day. she never ordered meal so went and checked on her. she has HALF-WAY in past to get stronger. her is in memory care and she has not been able to visit him with seth."/walter SIMS. ria spoke with daughter nancy [phone], education on dcp, hh, acute rehab, skilled rehab, before going back to [place] would be good "at [facility] or [facility] on [address] if she needs that. has walker, o2 she wears 30/05. has call line she can call for assist to walter."/nancy. will cont following as needed for dc needs.
--- NOTE | 2021-01-05 14:10 | NUR ---
7851 SPOKE WITH PATIENT'S DAUGHTER, RANJANA AND UPDATED HER VIA TELEPHONE
--- NOTE | 2021-01-05 14:40 | NUR ---
BEDSIDE ECHO IN PROGRESS.
[2021-01-05 15:31] LABS: PROTIME 80.6 Seconds (9.3-11.4)
[2021-01-05 15:41] LABS: INR > 8.0
--- NOTE | 2021-01-05 15:48 | 2DMMODE ---
[facility] [place] [address] [place] [address] 2 D/M-MODE ECHOCARDIOGRAM Name: CHAVO FRAZIER Room #: 240-P ADM IN M.R.#: [id number] Admission: 01/03/21 Attend Phys: Nilay Macias MD Discharge: Date of : 36 Report #: [id number] THIS REPORT FOR: cc: Fransisca Olivera MD, Nora P. MD Park, Jin S. MD ~ APPROVED REPORT Study performed: 01/05/2021 14:36:38 EXAM: Comprehensive 2D, Doppler, and color-flow Echocardiogram Patient Location: ICU Room #: 240 Status: routine BSA: 1.48 HR: 70 bpm BP: 179/63 mmHg Rhythm: NSR Other Information Study Quality: Good Indications COPD Elevated Troponin Sepsis 2D Dimensions RVDd: 26.77 mm IVSd: 9.30 (7-11mm) LVDd: 38.32 mm PWd: 8.87 (7-11mm) Ascending Ao: 20.01 (22-36mm) LVDs: 27.99 (25-40mm) Aortic Root: 22.88 mm IVC: 14.00 mm Volumes Left Atrial Volume (Systole) Single Plane 4CH: 39.15 mL Single Plane 2CH: 37.01 mL LA ESV Index: 28.00 mL/m2 Aortic Valve AoV Peak Ortiz.: 1.06 m/s AO Peak Gr.: 4.46 mmHg LVOT Max P.28 mmHg LVOT Max V: 0.90 m/s [facility] [place] [address] [place] [address] 2 D/M-MODE ECHOCARDIOGRAM Name: CHAVO FRAZIER Room #: 240-[facility] IN M.R.#: [id number] Admission: 01/03/21 Attend Phys: Nilay Macias MD Discharge: Date of : 36 Report #: [id number] Mitral Valve E/A Ratio: 0.8 MV Decel. Time: 151.13 ms MV E Max Ortiz.: 1.00 m/s MV A Ortiz.: 1.33 m/s MV PHT: 43.83 ms IVRT: 147.64 ms Pulmonary Valve PV Peak Ortiz.: 0.61 m/s PV Peak Gr.: 1.49 mmHg Pulmonary Vein P Vein S: 0.58 m/s P Vein A: 0.29 m/s P Vein D: 0.34 m/s P Vein A Dur.: 110.7 msec P Vein S/D Ratio: 1.71 Tricuspid Valve TR Peak Ortiz.: 2.81 m/s TR Peak Gr.: 31.65 mmHg PA Pressure: 37.00 mmHg Left Ventricle The left ventricle is normal size. There is normal LV segmental wall motion. There is normal left ventricular wall thickness. The left ventricular systolic function is normal. The left ventricular ejection fraction is within the normal range. LVEF is 55-60%. Grade I - abnormal relaxation pattern. Right Ventricle The right ventricle is normal size. The right ventricular systolic function is normal. Atria The left atrium size is normal. The right atrium size is normal. Aortic Valve The aortic valve is normal in structure. Mild to moderate aortic regurgitation. There is no aortic valvular stenosis. Mitral Valve Mitral valve leaflets are thickened. Mild to moderate mitral regurgitation. No evidence of mitral valve stenosis. Tricuspid Valve [facility] [address] [place] [address] 2 D/M-MODE ECHOCARDIOGRAM Name: CHAVO FRAZIER Room #: 240-P ADM IN M.R.#: [id number] Admission: 01/03/21 Attend Phys: Nilay Macias MD Discharge: Date of : 36 Report #: [id number] The tricuspid valve is normal in structure. There is mild tricuspid regurgitation. Estimated PAP 37 mmHg. Pulmonic Valve The pulmonary valve is normal in structure. Trace to mild pulmonic regurgitation. Great Vessels The aortic root is normal in size. IVC is normal in size and collapses >50% with inspiration. Pericardium There is no pericardial effusion. <Conclusion> The left ventricle is normal size. There is normal left ventricular wall thickness. The left ventricular systolic function is normal. The right ventricle is normal size. The left atrium size is normal. Mild to moderate aortic regurgitation. Mild to moderate mitral regurgitation. There is mild tricuspid regurgitation. Estimated PAP 37 mmHg. <ELECTRONICALLY SIGNED> By: Reese Ramos MD 01/05/21 1548 1548 1548 Reese Ramos MD /INF
--- NOTE | 2021-01-05 17:51 | NUR ---
Patients daughter was here and talked with Dr. Macias about status, prognosis, and plan of care. Plan is for patients sister to come in from [place] and visit patient before making any further decisions. Per Dr. Macias, this was cleared by Tisha and the granddaughter may come visit her also.
[2021-01-05 19:23] LABS: BE(vivo) -11.2 mmol/L (-2 to +3); HCO3 13.6 mmol/L (22.0-26.0); PCO2 27.2 mmHg (35.0-45.0); PO2 102.7 mmHg (80.0-100.0); sO2 97.4 % (92.0-98.0)
[2021-01-05 19:24] LABS: pH 7.317 (7.360-7.450)
--- NOTE | 2021-01-05 19:44 | NUR ---
Poison control notified of patients tylenol level. Per their request, please draw an acetaminophen level, ast and alt level, and INR 2 hours prior to the end of the 16 hour bag of Acetylcysteine. They will follow up.
--- NOTE | 2021-01-05 21:26 | NUR ---
RELAYED POISON CONTROL'S RECOMMENDATIONS TO DR. GREEN GI REGARDING ACETYLCYSTEINE, ORDERS RECIEVED TO CHANGE, MAY ADD RECOMMENDED LABS UNDER HIS NAME. REPORTED AMMONIA LEVEL, INR AND CURRENT MENTATION, NO NEW ORDERS
[2021-01-05 22:06] LABS: HAV IgM AB (ANTI-HAV IgM) Negative (Negative); HEPATITIS B SURFACE AG Negative (Negative); HEPATITIS C VIRUS AB <0.1 (0.0-0.9)
--- NOTE | 2021-01-05 22:27 | NUR ---
spoke with daughter, nancy, gave update, answered all questions within scope of practice.
[2021-01-05 23:42] LABS: BE(vivo) -14.2 mmol/L (-2 to +3); HCO3 11.7 mmol/L (22.0-26.0); PCO2 27.6 mmHg (35.0-45.0); PO2 131.6 mmHg (80.0-100.0); pH 7.244 (7.360-7.450); sO2 98.2 % (92.0-98.0)
[2021-01-06] VITALS (94 sets, daily range): BP systolic 100–202; BP diastolic 41–135
--- NOTE | 2021-01-06 00:03 | NUR ---
PT RR 35-45, SBP >200, HR 104, USE OF ACCESSORY MUSCLES APPEARS VERY LABORED, NOT RESPONDING TO VOICE OR PAIN, BUT EMITTING SHORT "WHIMPERS" AT END OF EXPIRATION. CALL TO DR HENDERSON AT 2335, EXPLAINING THAT PUPILS ARE INCREASINGLY MORE SLUGGISH THAN AT PREVIOUS ASSESSMENT, PT NEURO STATUS IS DIFFICULT TO ASSESS, AND INCLUDED FULL RESPIRATORY ASSESSMENT. ORDERS FOR ABG. RESULTS CALLED AT 2347, ORDERS RECIEVED TO GIVE 1 AMP BICARB AND ORDERS RECIEVED FOR PRN BLOOD PRESSURE MEDICATIONS. DR HENDERSON ATTEMPTED TO CALL DAUGHTER AT 0002 TO GIVE UPDATE AND ASSESS DGT PLAN, BUT NO ANSWER. THIS RN WILL ATTEMPT TO CALL TO GIVE FAMILY UPDATE ON PT STATUS
[2021-01-06 05:14] LABS: HEMATOCRIT 22.9 % (37.0-47.0); HEMOGLOBIN 7.6 gm/dL (12.0-15.0); MCH 31.8 pg (26.0-34.0); MCV 96.3 fL (80.0-100.0); RBC 2.38 mil/uL (4.20-5.00); RDW 13.4 % (10.5-14.5); WBC 17.7 thou/uL (4.0-11.0)
[2021-01-06 05:32] LABS: ALBUMIN 2.4 g/dL (3.4-5.0); CALCIUM 6.4 mg/dL (8.5-10.1); CREATININE 4.6 mg/dL (0.6-1.0); PHOSPHORUS 8.2 mg/dL (2.5-4.9); POTASSIUM 4.2 mmol/L (3.5-5.1)
--- NOTE | 2021-01-06 06:25 | NUR ---
CALLED TRANSPORT MANAGER FOR [employer] FOR AIR HUNGER IN AN ATEMPT TO CALM PT RR. PT HR DOWN TO 80'S FROM 105, RR DOWN TO 20'S FROM 35-45, AND BP STABLE. PT NO LONGER APPEARS TO BE USING ACCESSORY MUSCLES TO BREATHE. ALL LUNG SOUNDS ARE DIMINISHED, PT MOANS WITH CARES BUT DOES NOT OTHERWISE RESPOND, MOVES ALL 4 EXTREMITIES BUT NOT TO PAIN. PUPILS REACTIVE BUT SLUGGISH, EYES MOVE BACK AND FORTH L TO R, DO NOT APPEAR TO FOCUS ON ANYTHING. TOLERATED TURNS WELL. AWAITNG LABS AND RECS FROM POISON CONTROL, NOT PROGRESSING TOWARD GOALS
[2021-01-06 07:13] LABS: ALBUMIN 2.6 g/dL (3.4-5.0); DIRECT BILIRUBIN 3.3 mg/dL (<0.1-0.2); TOTAL BILIRUBIN 5.1 mg/dL (0.2-1.0); TOTAL PROTEIN 4.3 g/dL (6.4-8.2)
[2021-01-06 07:23] LABS: PROTIME > 90.0 Seconds (9.3-11.4)
[2021-01-06 07:24] LABS: INR > 8.0
[2021-01-06 07:28] LABS: SGPT > 1000 U/L (30-65)
--- NOTE | 2021-01-06 08:45 | NUR ---
PT. NOT APPROPRIATE FOR OT EVALUATION TODAY DUE TO NEURO AND PULMONARY STATUS ALONG WITH CRITICAL LAB VALUE OF INR. WILL CHECK BACK TOMORROW.
--- NOTE | 2021-01-06 09:23 | NUR ---
hospitalist notified cm that family request to transfer to . cm spoke with house super and bedside to see if this has been started. cm started referral to [facility], spoke with teresa, "at high capacity but will call if we can accept, fax # [phone], phone [phone]"/luci. cm faxed face sheet as requested, did not want all clinical until know if they are able to accept, and cm provided verbal report.
[2021-01-06 19:06] LABS: APTT 46.3 Seconds (24.5-32.8); PROTIME 59.2 Seconds (9.3-11.4)
[2021-01-06 19:12] LABS: INR 5.8
--- NOTE | 2021-01-06 19:14 | NUR ---
family came to visit today. patient dpoa, sister and two daughters to see her. patient given ffp and vitamin k. all mds aware of patient status. continues on bipap during the whole day. npo for now.
[2021-01-06 19:15] LABS: ALBUMIN 2.7 g/dL (3.4-5.0); DIRECT BILIRUBIN 3.4 mg/dL (<0.1-0.2); TOTAL BILIRUBIN 6.1 mg/dL (0.2-1.0); TOTAL PROTEIN 4.4 g/dL (6.4-8.2)
--- NOTE | 2021-01-06 21:34 | NUR ---
This RN spoke to Dr. Moon at 1999 regarding critical labs and status. No new orders received. Will continue to monitor.
--- NOTE | 2021-01-06 22:17 | NUR ---
This RN spoke to poison control at 1015 regarding patients labs and overall status. Recommended to continue with acetylsysteine gtt and monitoring labs.
[2021-01-07] VITALS (31 sets, daily range): BP systolic 110–181; BP diastolic 39–78
--- NOTE | 2021-01-07 04:27 | NUR ---
Skin tear formed on patients left hand afer turning patient. Pressure applied. Wound photo taken. Irrigated with sterile saline. Applied non adhering barrier, wrapped with gauze wrap and enforced with coband. Serosanguineous drainage present. Will continue to monitor and change dressing if needed.
[2021-01-07 04:59] LABS: HEMOGLOBIN 7.7 gm/dL (12.0-15.0); WBC 12.6 thou/uL (4.0-11.0)
[2021-01-07 05:06] LABS: HEMATOCRIT 22.5 % (37.0-47.0); MCH 31.9 pg (26.0-34.0); MCHC 34.2 g/dL (28.0-37.0); MCV 93.2 fL (80.0-100.0); RBC 2.42 mil/uL (4.20-5.00); RDW 13.1 % (10.5-14.5)
[2021-01-07 05:08] LABS: ALBUMIN 2.7 g/dL (3.4-5.0); CALCIUM 6.3 mg/dL (8.5-10.1); CREATININE 5.4 mg/dL (0.6-1.0); PHOSPHORUS 6.7 mg/dL (2.5-4.9); POTASSIUM 3.8 mmol/L (3.5-5.1)
[2021-01-07 05:21] LABS: PROTIME 88.2 Seconds (9.3-11.4)
[2021-01-07 05:48] LABS: ALBUMIN 2.7 g/dL (3.4-5.0); DIRECT BILIRUBIN 4.5 mg/dL (<0.1-0.2); TOTAL BILIRUBIN 7.6 mg/dL (0.2-1.0); TOTAL PROTEIN 4.5 g/dL (6.4-8.2)
[2021-01-07 06:12] LABS: INR > 8.0
--- NOTE | 2021-01-07 08:28 | NUR ---
OT WILL CHECK BACK IN PM, PT. WITH CRITICAL HIGH INR AND ON BIPAP. DEFER OT THIS AM.
--- NOTE | 2021-01-07 10:30 | NUR ---
discussed during rounds, cm checked with transfer center # [phone] and do to high capacity unable to accept transfer.
--- NOTE | 2021-01-07 10:43 | NUR ---
new orders noted for dr suggs consult. will cont follow as needed for dc needs.
--- NOTE | 2021-01-07 13:06 | NUR ---
ASSUMED CARE AT 0700. PATIENT'S DAUGHTER RANJANA, WAS CONTACTED FROM [id number] AND SHE WAS UPDATED AND EDUCATED ON THE PATIENT'S CONDITION AND PLAN OF CARE. PATIENT IS GOING HOSPICE/PALLIATIVE. DR. MENDOZA STATED HE HAD TALKED TO [facility] ABOUT FAMILY MEMBERS COMING TO VISIT WHEN CARE IS WITHDRAWN. FAMILY WAS SPOKEN TO ABOUT THIS AND DECLINED TO COME VISIT.
--- NOTE | 2021-01-07 14:01 | NUR ---
ST RECEIVED NEW ORDERS FOR BEDSIDE SWALLOW HOWEVER HAS NOW MOVED TO PALLIATIVE CARE. RECOMMEND PATIENT REMAIN NPO UNLESS ALERT AND RESPONSIVE. ST WILL REASSESS IF STATUS CHANGES.
--- NOTE | 2021-01-08 02:57 | NUR ---
TOD 01/08/21 AT 0130 DECLARED BY THIS RN AND NICHOLAS HO. THIS RN AT BEDSIDE AT TIME OF . MTN NOTIFIED, PT IS NOT A CANDIDATE FOR ANY DONATION. TIMEKEEPER CALLED, REPRESENATIVE WILL CALL BACK AROUND 0600 TO DETERMINE IF PT IS AN ME CASE. ALL LINES LEFT IN PER ME CEMENT TESTER ASSISTANT. DAUGHTER, RANJANA, NOTIFIED OF BY THIS RN. NO HOME AT THIS TIME. RANJANA WOULD LIKE CALL FROM BIKE DESIGNER LATER TODAY. RN CALLED AND LEFT MESSAGE WITH BIKE DESIGNER. PTS BELONGINGS WITH PATIENT. BELONGINGS INCLUDE YELLOW RING WITH THREE BANDS AND A CLEAR STONE.
== END 2021-01-08 01:30 | DRG 871 ==
LOC: ER 12:43 → ICU 15:17 → EROBS 15:17 → ICU 18:09
PROVIDERS: Emergency Medicine; Hospitalist; Internal Medicine Gastroenterology; Internal Medicine Pulmonary Disease; Nurse Practitioner; ADMIT Internal Medicine; ATTEND Internal Medicine
PROC: 30233K1 Transfusion of Nonautologous Frozen Plasma into Peripheral Vein, Percutaneous Approach (ICD-10-PCS; principal; 2021-01-03)
PROC: 02HV33Z Insertion of Infusion Device into Superior Vena Cava, Percutaneous Approach (ICD-10-PCS; principal; 2021-01-03)
PROC: 5A09457 Assistance with Respiratory Ventilation, 24-96 Consecutive Hours, Continuous Positive Airway Pressure (ICD-10-PCS; principal; 2021-01-03)
PROC: 5A09357 Assistance with Respiratory Ventilation, Less than 24 Consecutive Hours, Continuous Positive Airway Pressure (ICD-10-PCS; 2021-01-05)
PROC: 5A09457 Assistance with Respiratory Ventilation, 24-96 Consecutive Hours, Continuous Positive Airway Pressure (ICD-10-PCS; 2021-01-06)
DX: A41.9 Sepsis, unspecified organism (principal); N17.0 Acute kidney failure with tubular necrosis; G92 Toxic encephalopathy; J69.0 Pneumonitis due to inhalation of food and vomit; J96.21 Acute and chronic respiratory failure with hypoxia; J96.22 Acute and chronic respiratory failure with hypercapnia; R65.21 Severe sepsis with septic shock; D68.9 Coagulation defect, unspecified; N28.0 Ischemia and infarction of kidney; F11.20 Opioid dependence, uncomplicated; I95.9 Hypotension, unspecified; F32.9 Major depressive disorder, single episode, unspecified; F41.9 Anxiety disorder, unspecified; K57.90 Diverticulosis of intestine, part unspecified, without perforation or abscess without bleeding; R65.20 Severe sepsis without septic shock; E86.0 Dehydration; G89.4 Chronic pain syndrome; M81.0 Age-related osteoporosis without current pathological fracture; R53.81 Other malaise; G30.9 Alzheimer's disease, unspecified; F02.80 Dementia in other diseases classified elsewhere, unspecified severity, without behavioral disturbance, psychotic disturbance, mood disturbance, and anxiety; K21.9 Gastro-esophageal reflux disease without esophagitis; N18.9 Chronic kidney disease, unspecified; E16.2 Hypoglycemia, unspecified; G25.0 Essential tremor; R74.01 Elevation of levels of liver transaminase levels; K71.10 Toxic liver disease with hepatic necrosis, without coma; I12.9 Hypertensive chronic kidney disease with stage 1 through stage 4 chronic kidney disease, or unspecified chronic kidney disease; J44.9 Chronic obstructive pulmonary disease, unspecified; T39.1X5A Adverse effect of 4-Aminophenol derivatives, initial encounter; Z51.5 Encounter for palliative care; Z66 Do not resuscitate; D63.8 Anemia in other chronic diseases classified elsewhere; T42.3X5A Adverse effect of barbiturates, initial encounter; Z20.822 Contact with and (suspected) exposure to COVID-19; G25.3 Myoclonus; R27.8 Other lack of coordination; Z98.42 Cataract extraction status, left eye; Z98.41 Cataract extraction status, right eye; Z87.891 Personal history of nicotine dependence; Z86.73 Personal history of transient ischemic attack (TIA), and cerebral infarction without residual deficits; Z99.81 Dependence on supplemental oxygen; Y92.89 Other specified places as the place of occurrence of the external cause
CPT/HCPCS: 10078; 10204; 85076